=== PATIENT | male | born 1960 | race Caucasian/White ===

== ENCOUNTER 2018-05-11 14:13 | Emergency (ER) | payer OTHER, SELFPAY ==
[2018-05-11 14:19] VITALS: BP 114/84; PULSE 100; RESP 18; TEMP 37.1; O2SAT 95; BMI 41.0
--- NOTE | 2018-05-11 14:52 | ED.VISSUMM ---
- ER Visit Summary Date of Service: 05/11/18 Chief Complaint: Patient presents with chief complaint of headache, fever and sweats. History of Present Illness: The patient is a 57 M presents to the ER because of headache, fever and sweats. Patient's T-max was 100.0?F. He does complain of sweats and chills. Onset of illness [place]. He reports photophobia. He denies neck stiffness or rigidity. He does report chronic back pain. He complains of mild congestion. HEENT is otherwise unremarkable. He denies cough, shortness of breath difficulty breathing. Denies chest pain or palpitations. He denies nausea, vomiting or diarrhea. He denies abdominal pain. Denies any urologic symptoms. He denies any skin lesions. He complains of chronic paresthesia and chronic back pain. Review of old records indicates patient has a past medical history of type 2 diabetes, hypertension, depression and anxiety. He had an MRI which osteomyelitis of T8, T9 and T10 vertebrae. Physical Examination: Vital signs are noted. They are within normal limits. He is not febrile. He is diaphoretic. BMI is 41.1. Head is atraumatic normocephalic. Pupils are equal round reactive. Extraocular muscles are intact. TMs are pearly white with landmarks noted. Nares patent with no drainage. Posterior pharynx without erythema or exudate. Uvula is midline. There is no dysphonia or dysphasia. Trachea is midline. There is no stridor with auscultation of the neck. Mucosa is dry. Funduscopic exam reveals normal cup-to-disc ratio and no papilledema difficult to see vessels and fundi. He does not have photophobia. Neck is supple. Heart is regular without murmur, gallop or rub. S1 and S2 are normal. Lungs are clear to auscultation with good movement of air bilaterally. Abdomen soft nontender. He has no point percussion tenderness of his dorsal or lumbar vertebral bodies. Well-healed scar is noted secondary to removal of benign tumor. He is alert oriented ?3. Motor is 5/5. Sensation is abnormal lower extremity which is old. Patella and ankle reflex are absent on the right which is old. There is no clonus or Babinski sign. Cranial 2 through 12 are intact. Test Results: CBC is unremarkable. There is no elevated white count shift or bandemia. Electronic panel reveals slight decrease in sodium and chloride of 130 397 respectively. Blood sugar slightly elevated 127. Emergency Department Course and Treatment: Patient will be informed that there is no documentation that he had meningitis or osteomyelitis of his spine. MRI revealed discitis. Treatment Plan: Appropriate home-going instructions. Blood cultures were obtained. If positive patient was informed he will be contacted. Otherwise, follow-up with his primary care physician, Dr. Baumann Disposition: Discharged home Impression: 1. Fever of unknown source 2. Headache 3. Type 2 diabetes with hyperglycemia 3. History of hypertension This note was generated with [employer] dictation software. It may contain incorrect words, spelling, and punctuation that were not noted in review of the chart prior to signing ED Disposition - Plan for ED Patient: Disposition: Home or Assisted Living Chief Complaint: Dizziness Instructions: ED Fever Unconf Cause Referrals: Xu Baumann DO [Primary Care Provider] - 1-2 Days if not improving
[2018-05-11 15:03] LABS: Absolute Lymphocyte Count 1.09 X10^3/ul (0.83-4.51); Absolute Neutrophil Count 4.5 X10^3/uL (2.0-7.7); Basophil# 0.04 X10^3/uL; Basophil% 0.6 % (0-1); Eosinophil# 0.05 X10^3/uL; Eosinophils% 0.7 % (0-5); Hematocrit 44.8 % (40-54); Hemoglobin 15.2 g/dl (13.0-16.5); Lymphocyte # 1.09 X10^3/ul (4.0); Lymphocyte % 15.8 % (19-41); Mean Corp Hgb Conc 33.9 g/gl (32-36); Mean Corpuscular Hgb 29.2 pg (27.0-32.0); Mean Platelet Vol. 9.8 fl (6.2-12.0); Monocyte# 1.18 X10^3/uL; Monocyte% 17.1 % (0-10); Neutrophil # 4.54 X10^3/uL (2.7-7.7); Neutrophil % 65.5 % (47-70); Platelet Count 171 K/mm3 (150-450); RBC Distribution Width CV 13.4 % (11.6-14.6); RBC Distribution Width SD 42.4 fl (35.1-43.9); Red Blood Count 5.21 M/mm3 (4.6-6.2); White Blood Count 6.9 K/mm3 (4.4-11.0)
[2018-05-11 15:04] LABS: Differential Indicated SCAN CRITERIA MET; POSITIVE COUNT NO; POSITIVE DIFFERENTIAL NO; POSITIVE MORPHOLOGY YES
[2018-05-11 15:15] LABS: Anion Gap 8 (5-15); BUN 23 mg/dL (7-18); BUN/Creat Ratio 21.7 RATIO (10-20); Calcium,Total 9.2 mg/dL (8.5-10.1); Chloride 97 mmol/L (98-107); Creatinine, Serum 1.06 mg/dL (0.70-1.30); EST Glomerular Filtration Rate 76 mL/min (>60); Est Glom Filt Rate - Afr Amer 92 mL/min (>60); Estimated Creatinine Clearance 74.39 ml/min; Glucose 127 mg/dL (74-106); Potassium 3.5 mmol/L (3.5-5.1); Sodium Level 133 mmol/L (136-145)
[2018-05-11 15:27] VITALS: BP 135/77; PULSE 71; RESP 15; O2SAT 98
[2018-05-11 16:02] LABS: Differential Comment SCANNED
== END 2018-05-11 15:30 | disposition home or self-care (01) ==
PROVIDERS: Emergency Provider Emergency Medicine; Family Provider Student in an Organized Health Care Education/Training Program; PCP Student in an Organized Health Care Education/Training Program
DX: R50.9 Fever, unspecified (principal); R51 Headache; E11.65 Type 2 diabetes mellitus with hyperglycemia; I10 Essential (primary) hypertension; F32.9 Major depressive disorder, single episode, unspecified; F41.9 Anxiety disorder, unspecified; M46.24 Osteomyelitis of vertebra, thoracic region; E66.9 Obesity, unspecified; Z68.41 Body mass index [BMI] 40.0-44.9, adult; Z79.84 Long term (current) use of oral hypoglycemic drugs; Z79.899 Other long term (current) drug therapy
CPT/HCPCS: 80048; 85025; 87040; 99284; A4216

== ENCOUNTER 2019-04-20 11:12 | Emergency (ER) | payer MEDICARE, OTHER, SELFPAY ==
[2019-04-20 11:13] VITALS: BP 152/91; PULSE 73; RESP 20; TEMP 35.8; O2SAT 96; BMI 32.0
--- NOTE | 2019-04-20 12:24 | CT_ITS ---
STUDY: CT BRAIN WITHOUT CONTRAST REASON FOR EXAM: Male, 58 years old. 3 week history of dizziness. RADIATION DOSAGE (If Supplied By Facility): CTDIvol = ( 60.81 ) mGy, DLP = ( 1203.92 ) mGycm TECHNIQUE: Transaxial CT imaging of the brain was performed without administration of intravenous contrast material. Individualized dose optimization techniques were used for this CT. COMPARISON: Comparison is made with prior study dated June 07, 2017. FINDINGS: Normal soft tissue structures. Normal calvarium. Normal size ventricles and extra-axial spaces for the patient's age. Normal white matter tracts of the cerebral hemispheres. Normal basal ganglia and thalami. Normal brainstem. Normal cerebellum. There is no intracranial hemorrhage. There are no findings of an acute ischemic infarction. Normal visualized paranasal sinuses. CT/Brain/Head without Contrast IMPRESSION: Normal unenhanced CT scan of the brain. Electronically Signed: Ned Neil, at 13:34 EDT , Service support ,
--- NOTE | 2019-04-20 12:24 | EKG12_ITS ---
Test Reason : Blood Pressure : / mmHG Vent. Rate : 081 BPM Atrial Rate : 081 BPM P-R Int : 178 ms QRS Dur : 102 ms QT Int : 396 ms P-R-T Axes : 062 -31 027 degrees QTc Int : 460 ms Normal sinus rhythm Left axis deviation Low voltage QRS Inferior infarct , age undetermined Abnormal ECG Confirmed by RIK GAN, ALBA ([id number]), multimedia editor JUSTINE WATKINS ([id number]) on 04/24/2019 1:13:41 PM Referred By: CHANDANA Confirmed By:ALBA JOLLY MD
--- NOTE | 2019-04-20 12:26 | ED.VISSUMM ---
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 Prior meningitis and prior osteomyelitis of his spine after surgery. 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 Is been dizzy with room spinning for the last 3 weeks. Since it is worse than his normal vertigo and is been taking Antivert without much relief. Said somewhat different than his vertigo is normally that resolves. He denies any headache or head injury. He is on no blood thinners. He denies any fever. Physical Examination: Middle-aged male no acute distress. Vital signs are stable afebrile. He walks in the room without any difficulty as well as speaking with his at bedside. HEENT exam unremarkable. Pupils round reactive light. Normal speech. No facial droop. Neck nontender. Old tracheostomy scar. Well-healed. Lungs clear to auscultation bilaterally. Heart regular rate and rhythm no murmur. Rate about 70. Chest wall nontender. Abdomen soft and nontender. Normal bowel sounds no peritoneal signs. Patient moving all 4 extremities. Neurovascularly. Calves are nontender without edema. He has 5-5 gambreler strength bilaterally and 5 out of 5 both the plantar flexion. Neurologically is awake alert with no focal motor deficit. NIH score is 0. Test Results: Normal white count of 9. Hemoglobin 15. Lites unremarkable glucose 139 normal gap normal creatinine. EKG sinus rhythm with low voltage otherwise unremarkable. CT of the brain is read by the radiologist and reviewed by me shows no acute abnormality. Emergency Department Course and Treatment: White female with prior vertigo with dizziness. Treated with p.o. Valium. Treatment Plan: Repeat exam at 1530 p.m. patient is doing well. Initially his dizziness was much better after taking the Valium. He saline went over the radiology department and was moving his head it seemed to return. Repeat exam his neurologic exam is still normal and unchanged. He will be discharged home with prescription also for Valium and follow up with his primary care physician. Disposition: Discharge Impression: Acute dizziness History of vertigo This note was generated with [employer] dictation software. It may contain incorrect words, spelling, and punctuation that were not noted in review of the chart prior to signing ED Disposition - Plan for ED Patient: Referrals: Xu Baumann DO [Primary Care Provider] -
[2019-04-20 12:48] LABS: Anion Gap 4 (5-15); BUN 19 mg/dL (7-18); BUN/Creat Ratio 20.2 RATIO (10-20); Calcium,Total 9.4 mg/dL (8.5-10.1); Chloride 102 mmol/L (98-107); Creatinine, Serum 0.94 mg/dL (0.70-1.30); EST Glomerular Filtration Rate 87 mL/min (>60); Est Glom Filt Rate - Afr Amer 106 mL/min (>60); Estimated Creatinine Clearance 82.87 ml/min; Glucose 139 mg/dL (74-106); Sodium Level 137 mmol/L (136-145)
[2019-04-20] MEDS: diazePAM 5 MG Tablet 10 MG PO (12:50)
[2019-04-20 12:58] LABS: Absolute Lymphocyte Count 1.45 X10^3/uL (0.83-4.51); Absolute Neutrophil Count 6.1 X10^3/uL (2.0-7.7); Basophil# 0.09 X10^3/uL; Eosinophil# 0.46 X10^3/uL; Eosinophils% 5.1 % (0-5); Hematocrit 45.2 % (40-54); Lymphocyte # 1.45 X10^3/ul (4.0); Lymphocyte % 16.2 % (19-41); Mean Corp Hgb Conc 33.2 g/dL (32-36); Mean Corpuscular Hgb 28.8 pg (27.0-32.0); Mean Corpuscular Volume 86.9 fL (80-94); Mean Platelet Vol. 10.3 fl (6.2-12.0); Monocyte# 0.78 X10^3/uL; Monocyte% 8.7 % (0-10); NRBC Flagged by Analyzer 0 % (0-5); Neutrophil # 6.09 X10^3/uL (2.7-7.7); Neutrophil % 67.9 % (47-70); Platelet Count 254 K/mm3 (150-450); RBC Distribution Width CV 12.7 % (11.6-14.6); RBC Distribution Width SD 39.9 fl (35.1-43.9)
[2019-04-20] MEDS: 0.9% Normal Saline 1,000 ML 999 ML IV (13:03)
[2019-04-20 14:32] VITALS: BP 147/80; PULSE 71; RESP 16
--- NOTE | 2019-04-20 15:33 | ED.DEP ---
ED Disposition - Plan for ED Patient: Disposition: Home or Assisted Living Instructions: DIZZINESS, Unk Cause Prescriptions: Diazepam [Valium] 5 mg PO 4X/DAY #20 tab Prescription Printed Referrals: Xu Baumann DO [Primary Care Provider] - 3-5 Days if not improving Additional Instructions: Valium as needed for dizziness. Follow-up with your doctor if not improving.
[2019-04-20 15:41] VITALS: BP 138/94; PULSE 79; RESP 16
== END 2019-04-20 15:43 | disposition home or self-care (01) ==
PROVIDERS: Emergency Provider Emergency Medicine; Family Provider Student in an Organized Health Care Education/Training Program; PCP Student in an Organized Health Care Education/Training Program
DX: R42 Dizziness and giddiness (principal); I10 Essential (primary) hypertension; E11.9 Type 2 diabetes mellitus without complications; Z79.84 Long term (current) use of oral hypoglycemic drugs; Z79.899 Other long term (current) drug therapy
CPT/HCPCS: 70450; 80048; 85025; 93005; 96360; 99285; J7030; A4216

== ENCOUNTER 2021-10-17 13:58 | Outpatient (CLI) | payer MEDICARE, OTHER, SELFPAY ==
--- NOTE | 2021-10-17 15:49 | NEURO ---
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 The patient reports static numbness in multiple distributions following surgical resection in 2016. He is now being evaluated for a soft tissue mass on the extensor surface of the right elbow. He has been sent to evaluate the right ulnar nerve. Findings: Nerve conduction studies were performed in the right upper extremity. Comparison sensory studies to the contralateral left upper extremity. The right median motor study recording the abductor pollicis brevis showed a markedly reduced amplitude, prolonged distal latency and slowed conduction velocity. The right ulnar motor study recording the abductor digiti minimi showed a reduced amplitude, normal distal latency and normal conduction velocity. No conduction block or significant focal slowing was present across the elbow. The right median sensory response recording digit two showed a reduced amplitude, prolonged latency and markedly slowed conduction velocity. The right ulnar sensory response recording digit five showed no response. The right radial sensory response recording over the extensor snuff box showed a reduced amplitude, normal latency and normal conduction velocity. Right median-ulnar lumbrical / interosseous motor latencies showed prolongation of the median response when compared to the ulnar. The right sural sensory response showed a reduced amplitude and slowed conduction velocity. Needle EMG of the right upper extremity muscles was performed. The cervical paraspinal muscles were not sampled due to the patient's history of prior neck surgery. No denervation was seen in any muscle. In the triceps muscle, motor units were large amplitude, long amplitude and reduced recruitment. The biceps and deltoid muscles revealed normal motor unit morphology, activation and recruitment patterns. Impression: This is a markedly abnormal and complex study. There is electrophysiologic evidence of consistent with: 1.) A severe, non-localizing, right ulnar neuropathy. Further evaluation with ultrasound could be considered for further localization and characterization. 2.) A severe, median neuropathy across the right wrist. There is no active denervation of the thenar muscles to suggest ongoing axonal loss. 3.) A mild, chronic, right C7 radiculopathy. In addition, there is evidence suggestive of a generalized peripheral polyneuropathy. This was not fully evaluated as it was not the indication for the study. Lastly, given these multiple concurrent findings, this study would be insensitive for detecting a superimposed brachial plexopathy. Dashawn Campos D.O. Multi Select Codes Neurology Neurology Interp Codes: 14235-23 Musc test done w/n test comp (interp) and 75146-03 Nrv cndj test 9-10 studies (interp)
== END 2021-10-17 23:59 | disposition short-term general hospital (02) ==
LOC: PSN 14:01
PROVIDERS: PCP Student in an Organized Health Care Education/Training Program; Referring Provider Specialist; Visit Provider Specialist
DX: R20.2 Paresthesia of skin (principal)
CPT/HCPCS: 95886; 95911

== ENCOUNTER 2021-12-19 13:52 | Outpatient (CLI) | payer MEDICARE, OTHER, SELFPAY ==
--- NOTE | 2021-12-19 13:56 | ECHOCS_ITS ---
Reason For Study: Pre Op Exam Procedure This was a 2D Doppler, Color Flow transthoracic echocardiogram. Technically difficult study due to patients body habitus. Contrast injection performed. Exam performed in department. Left Ventricle Normal LV size. Left ventricular systolic function is normal. The estimated ejection fraction is 65 %. Stage 1 diastolic dysfunction. No regional wall motion abnormalities noted. Right Ventricle Normal RV size. Normal systolic function. Atria Normal left atrium. Normal right atrium. Mitral Valve Normal mitral valve. Tricuspid Valve The tricuspid valve is not well visualized. Aortic Valve The aortic valve is not well visualized. Pulmonic Valve The pulmonic valve is not well visualized. Great Vessels Normal aortic root. Pericardium/Pleural No pericardial effusion. Medication 22 gauge I.V. with prn adaptor inserted into right arm. Diluted definity 5ml given slow IV push to enhance endocardial definition. MMode/2D Measurements & Calculations Ao root diam: 3.3 cm LAV(MOD-bp): 45.9 ml LA A4 area: 18.6 cm2 LAV(MOD-bp) Indexed: 19.5 ml/m2 LAV(MOD-sp2): 39.6 ml LAV(MOD-sp4): 49.7 ml Time Measurements MV dec time: 0.23 sec Doppler Measurements & Calculations MV E max robert: 63.3 cm/sec Lat Peak E' Robert: 6.3 cm/sec Med Peak E' Robert: 6.8 cm/sec MV A max robert: 109.8 cm/sec E/E' lat: 10.0 E/E' med: 9.3 MV E/A: 0.58 MV V2 max: 136.8 cm/sec MV P1/2t max robert: 84.7 cm/sec Ao V2 max: 111.3 cm/sec MV max P.5 mmHg MV P1/2t: 64.5 msec Ao max P.0 mmHg MV V2 mean: 83.0 cm/sec MV dec slope: 385.0 cm/sec2 MV mean P.1 mmHg MV V2 VTI: 19.8 cm MVA(P1/2t): 3.4 cm2 LV V1 max: 102.5 cm/sec PA V2 max: 96.3 cm/sec LV V1 max P.2 mmHg ECHO/Echo Complete W/ Contrast Interpretation Summary Normal LV size. Left ventricular systolic function is normal. The estimated ejection fraction is 65 %. Stage 1 diastolic dysfunction. Contrast injection was performed. Ordering Physician: Venkat Soler Referring Physician: Xu Baumann Performed By: Jarod Harris RCS
== END 2021-12-19 23:59 | disposition home or self-care (01) ==
LOC: CVS 13:55
PROVIDERS: PCP Student in an Organized Health Care Education/Training Program; Referring Provider Internal Medicine Cardiovascular Disease; Visit Provider Internal Medicine Cardiovascular Disease
DX: Z01.818 Encounter for other preprocedural examination (principal); R06.00 Dyspnea, unspecified; R06.02 Shortness of breath
CPT/HCPCS: 93306; Q9957; A4216; C8929

== ENCOUNTER 2022-01-22 05:54 | Day surgery (SDC) | payer MEDICARE, OTHER, SELFPAY ==
[2022-01-22] VITALS (8 sets, daily range): BP systolic 132–156; BP diastolic 84–97; PULSE 86–106; RESP 16–18; TEMP 36.3–36.9; O2SAT 91–94; BMI 42.6
[2022-01-22] MEDS: Lactated Ringers 1,000 ML 15 ML IV (06:41)
[2022-01-22 06:50] LABS: Bedside Glucose 154 mg/dL (74-106)
--- NOTE | 2022-01-22 07:30 | BUR_PTH ---
PATIENT: AVRIL STAFFORD [place] [facility] [place][id number] AGE/SX: 61/M ROOM: RE01/22/[address]: Dr. Juan José Cohen DO : 1960 BED: DIS: 01/22/2022 SPEC #: [id number] RECD: 01/22/22 10:49 STATUS: DEON SHELL #: [id number] DEVIN: 01/22/22 07:[address]: Juan José Cohen DEPT: SURGICAL PATHOLOGY RECD BY: Tanvi Mena ENTERED: 01/22/22 11:48 SP TYPE: BURSA OTHR DR: Dr. Xu Baumann DO Tissues: Bursa, NOS Procedures: Surgery Specimen Level III HEADER OPERATION: Carpal Tunnel Release, Elbow and Wrist Ulnar Nerve Release PRE-OP DIAGNOSIS: Right Olecranon Bursitis, Right Carpal Tunnel Syndrome, Lesion of Ulnar Nerve, Right Upper Limb. TISSUE SUBMITTED: Right Olecranon Bursa MICROSCOPIC DIAGNOSIS Right olecranon bursa, excision: Mild chronic inflammation. Focal fibrinoid degeneration and associated reactive change. AM:ellyn 01/23/2022 MICROSCOPIC DESCRIPTION Slides are reviewed. GROSS DESCRIPTION Received in fixative is one container labeled with the patient's name and designated right olecranon bursa. The specimen consists of a piece of sun, indurated tissue measuring 8 x 5 x 1 cm. No mass lesion is identified. Jewel Hole Rough Opener sections are submitted in two cassettes. / SJ:ellyn 01/22/2022 TC:3 CPT: 12633
[2022-01-22] MEDS: Lidocaine 1% (20 ml mdv) 20 ML Vial (09:27)
[2022-01-22] MEDS: Lidocaine 1% /Epi 1:100 (20ml) 20 ML Vial (09:29)
--- NOTE | 2022-01-22 09:34 | OP.PCM_ITS ---
Report of Operation Date of Procedure: 01/22/22 Description of Surgical Findings:: Preoperative diagnosis: 1. Right carpal tunnel syndrome 2. Right ulnar tunnel syndrome at the wrist 3. Right cubital tunnel syndrome 4. Chronic right olecranon bursitis Postoperative diagnosis: 1. Right carpal tunnel syndrome 2. Right ulnar tunnel syndrome at the wrist 3. Right cubital tunnel syndrome 4. Chronic right olecranon bursitis Procedure: 1. Right open carpal tunnel release 2. Right ulnar tunnel decompression at the wrist 3. Right cubital tunnel decompression 4. Right olecranon bursectomy Surgeon: Juna José Cohen DO Music Cataloguer: Joyce Darling PA-C Anesthesia: General LMA Anesthesiologist: Dr. Aviles Complications: None Drains: None Estimated blood loss: 100 cc Urinary output: None measured IV fluids: 700 cc crystalloid Specimens: Right olecranon bursa Surgical implants: None Surgical indications: This is a 61-year-old male seen in the outpatient setting diagnosed with median and ulnar nerve compression in the right upper extremity. Ulnar nerve compression was seen both across the elbow and wrist on EMG. Patient also had chronic right olecranon bursitis that has failed multiple aspirations, RICE therapy. The patient failed nonoperative management in the form of anti-inflammatory medications, activity modification. Operative intervention in form of right carpal, ulnar, and cubital tunnel releases and olecranon bursectomy were offered to the right upper extremity. There was no evidence of ulnar nerve instability on examination the office. We discussed potential anterior nerve transposition. The risks, benefits, alternatives to procedure were reviewed with patient at length in the outpatient setting and he agreed to proceed. Risks included but were not limited to bleeding, infection, loss of life or limb, risk of anesthesia, persistent paresthesias, neurovascular injury, persistent pain, need for additional surgery, stiffness, loss of hand function. Patient expressed understanding wish to proceed with surgery. Informed consent obtained in the office. Description of procedure: Patient was seen in preoperative holding area. Patient was identified by name, medical record number, date of . The operative extremity was marked with a surgical marker. We confirmed informed consent with the patient and all questions were answered to the patient's satisfaction. At time of his procedure, patient was brought to the operative suite and positioned supine a standard operating table. All bony prominences were well- padded. General anesthesia was induced and endotracheal tube placed. The operative upper extremity was then prepped for surgery by first applying a well- padded pneumatic tourniquet to the right upper arm. The hand table attached to the right side of the table. We spun the bed 90 degrees. We then prepped and draped the right upper extremity in normal, sterile orthopedic fashion. 2 g Ancef was administered prior to incision by anesthesia staff. We performed a timeout at this point confirming side, site, and operation to be performed. No concerns voiced and elected to proceed. I first exsanguinated the right upper extremity with Esmarch bandage. Tourniquet was inflated to 250 mmHg remained up for 46 minutes. Esmarch was removed. I then planned a curvilinear incision just radial to the hook of the hamate extending past the wrist crease with a Masood extension of approximately 1 cm. Skin was sharply incised with a 15 blade scalpel. I bluntly dissected through the scope to explain where significant fat was noted. I identified the ulnar nerve just deep to the antebrachial fascia. Antebrachial fascia was released. I then released overlying fascial bands of the ulnar nerve through its course through Guyon's canal. I released the Pisa triquetral ligament and leading tendinous edges of the hypothenar musculature to decompress the deep motor branch of the ulnar nerve at the wrist. Complete release of the nerve was ensured with a freer elevator passed through the Guyon's canal. I then turned my attention to the carpal tunnel. Palmar fascia radial to the hook of the hamate was released in line with the incision. The transverse carpal ligament was then identified and transected in similar fashion. Flexor tendons were identified in the carpal tunnel. There was significant hypertrophic tenosynovium noted around the flexor tendons which was excised. No aberrancies of the median nerve were identified. Complete release was confirmed distally upon the identification of perivascular fat. Release proximally was continued into the antebrachial fascia of approximately 1 cm. I then turned my attention to the elbow. I planned a standard curvilinear incision of the cubital tunnel cheating slightly posteriorly to access the olecranon bursa. Incision was approximately 8 cm in length. Skin and subcuta neous tissue were incised sharply with a 15 blade scalpel. I bluntly dissected in the subcutaneous plane down to the level of the olecranon bursa. The bursa was freed from fascial adhesions. I drained the bursa, serosanguineous fluid was encountered. I then used an Allis clamp to elevate the bursa carefully from its fascial adhesions. Bursa was then excised after I was able to track it down to the periosteum of the ulna and distal triceps. The triceps was examined and was unremarkable. Bursa was then excised and sent to pathology. I then turned my attention to the cubital tunnel. The interval between the medial epicondyle and olecranon was identified. 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 I debrided the muscle with a bipolar cautery. Underlying Martinez's ligament was identified and released. The ulnar nerve was then identified and appeared to be compressed at this level with significant hourglass appearance and discoloration noted of the nerve. I continued my release of the ulnar nerve distally, releasing the superficial and deep fascia of the 2 heads of the flexor carpi ulnaris. Release was carried distally until the first motor branch to the FCU was identified. I then continue to release proximally. The arcade of [place] was identified and released. The medial intermuscular septum was also identified and released from its insertion, excising a slip of tissue 1 x 5 cm in length. I was able to digitally palpated the posterior compartment, no further fascial bands were identified as compression sites for the nerve. I then brought the elbow through range of motion and the nerve appeared stable. I then deflated the tourniquet. I injected the surrounding tissues with 1% lidocaine with epinephrine 1: 100,000, approximately 20 cc. There was significant bleeding noted from the bursectomy. Bovie cautery was used to obtain hemostasis. I closed the wrist incision with interrupted horizontal mattress 3-0 nylon suture. Elbow incision was closed with deeper 3-0 Vicryl suture to eliminate space from the bursectomy. Dermis was reapproximated with buried 3-0 Vicryl suture. Skin was finally reapproximated with a running, horizontal mattress 3-0 nylon suture. Sterile compression dressing was applied. Patient tolerated procedure well without complication. Patient was safely extubated in the operative suite. He was transferred back to PACU in stable condition. Need for skilled customer support assistant: Joyce Darling PA-C was critical to the outcome of the case. During the course of the procedure the physician customer support assistant played a vital role. Her intimate knowledge of my steps in the procedure aided in safe and expedient completion of the procedure. The PA played a vital role in positioning particularly in obtaining the appropriate positioning. The PA was also vital in the retraction of soft tissues during the exposure and protecting vital structures. She also played a vital role in closure with my direct supervision. Post Operative Plan: Weightbearing: Nonweightbearing operative extremity Antibiotics: Ancef 2 g x 1 dose preoperatively DVT Prophylaxis: Restart home aspirin tomorrow Dejesus: None Dressing: Maintain x3 days, then okay to remove and shower. X-Rays: None pain Medication: Oxycodone Rx upon discharge Follow-up: 2 weeks post-operatively with me in the office
[2022-01-22 10:21] LABS: Bedside Glucose 161 mg/dL (74-106)
[2022-01-22] MEDS: dexAMETHasone 10 MG/ML Vial IV (10:50)
--- NOTE | 2022-01-22 11:30 | PCM.DC ---
Discharge Instructions Follow Up Care Test Results: Test results from this visit will be discussed in further detail at your follow-up appointment, if applicable. Discharge Plan Admission Attending Provider: Juan José Cohen Primary Care Provider: Xu Baumann Instructions Additional Instructions / Restrictions: Follow preprinted instructions from your surgeons office. Discharge Orders/Prescriptions Prescriptions: No Action Trulicity 0.75 mg/0.5 mL pen injector 0.75 mg subcut TU RF: 0 metformin 1,000 mg tablet 1,000 mg PO BID RF: 0 Lantus Solostar U-100 Insulin 100 unit/mL (3 mL) insulin pen 10 unit subcut QPM RF: 0 tizanidine 4 mg capsule 4 mg PO Q8H PRN (Reason: MUSCLE SPASMS) RF: 0 meclizine 25 mg tablet 25 mg PO Q6H PRN (Reason: Vertigo) RF: 0 escitalopram oxalate 10 mg tablet 10 mg PO DAILY RF: 0 vitamin B complex Tablet 1 tab PO DAILY RF: 0 hydrochlorothiazide 25 mg tablet 25 mg PO DAILY RF: 0 multivitamin Tablet 1 tab PO DAILY RF: 0 ascorbic acid (vitamin C) 1,000 mg tablet 1 g PO DAILY RF: 0 metoprolol tartrate 50 MG tablet 50 mg PO BID Qty: 60 RF: 0 gabapentin 300 MG capsule 900 mg PO TIDCM Qty: 180 RF: 0 Referrals / Follow Up: Xu Baumann DO [Primary Care Provider] - Juan José Cohen DO [STAFF PHYSICIAN] - Disposition Disposition (needs filled in before D/C Order can be placed): Home, Self Care
== END 2022-01-22 12:04 | disposition home or self-care (01) ==
LOC: SDC 05:54 → AC 05:56
PROVIDERS: PCP Student in an Organized Health Care Education/Training Program; Referring Provider Student in an Organized Health Care Education/Training Program; Visit Provider Student in an Organized Health Care Education/Training Program
PROC: (CPT 64721; principal; 2022-01-22 07:15)
DX: G56.01 Carpal tunnel syndrome, right upper limb (principal); E11.40 Type 2 diabetes mellitus with diabetic neuropathy, unspecified; Z68.41 Body mass index [BMI] 40.0-44.9, adult; Z79.4 Long term (current) use of insulin; G56.21 Lesion of ulnar nerve, right upper limb; M70.21 Olecranon bursitis, right elbow; I10 Essential (primary) hypertension; I25.2 Old myocardial infarction; E78.5 Hyperlipidemia, unspecified; G47.33 Obstructive sleep apnea (adult) (pediatric); M19.90 Unspecified osteoarthritis, unspecified site; E66.8 Other obesity; Z71.3 Dietary counseling and surveillance; Z20.822 Contact with and (suspected) exposure to COVID-19; Z79.84 Long term (current) use of oral hypoglycemic drugs; Z79.899 Other long term (current) drug therapy; Z87.891 Personal history of nicotine dependence
CPT/HCPCS: 64721; 64718; 24105; 82962; 87811; 88304; C9803; J7120; J3490

== ENCOUNTER 2022-03-17 13:19 | Observation (INO) | payer MEDICARE, OTHER, SELFPAY ==
[2022-03-17] VITALS (18 sets, daily range): BP systolic 139–180; BP diastolic 91–112; PULSE 76–112; RESP 16–93; TEMP 36.1–36.9; O2SAT 92–97; BMI 42.0
--- NOTE | 2022-03-17 14:04 | EDS_ITS ---
HPI History of Present Illness Chief Complaint: Allergic Reaction Informant: patient and family Narrative Narrative: 61-year-old male presenting to the emergency department angioedema. Symptoms began at approximately 4 hours ago and involving his lower lip. He took 2 [id number] Benadryl went to urgent care and they sent him to emergency. The patient in 2012 had significant angioedema which resulted in intubation and prolonged ICU care and eventual tracheostomy. At that time it was felt that his angioedema was due to lisinopril or Wellbutrin. Patient states his tongue does not feel swollen and he is not having any difficulty swallowing and family states his voice sounds normal. In 2013, he had normal C1 esterase and complement activity. [facility] Medical History Ambulates with cane Arthritis Back pain BPH (benign prostatic hyperplasia) BPPV (benign paroxysmal positional vertigo) Cardiology follow-up encounter Cervical spine tumor Chronic low back pain CPAP (continuous positive airway pressure) dependence Degenerative disc disease Depression Depression Dietary restriction DVT (deep venous thrombosis) Dysmetabolic syndrome Fatty liver Former smoker History of echocardiogram History of edema History of kidney stones History of meningitis (2010) History of osteomyelitis History of pain when walking History of steroid therapy Hypertension Insulin dependent diabetes mellitus Leg cramps Marijuana use Obstructive sleep apnea MARNIE on CPAP Restless legs Rib injury Right carpal tunnel syndrome Shortness of breath on exertion Situational depression Vertigo Vitamin D deficiency Wears dentures Wears glasses Wears hearing aid Home Medications metoprolol tartrate 50 mg tablet 50 mg PO BID #60 TABLETS 07/24/13 [Rx Last Taken 06/29/16 17:30] gabapentin 300 mg capsule 900 mg PO TIDCM #180 caps 09/07/16 [Rx Last Taken Unknown] ascorbic acid (vitamin C) 1,000 mg tablet 1 g PO DAILY 12/15/21 [History Last Taken Unknown] dulaglutide 0.75 mg/0.5 mL subcutaneous pen injector (Trulicity) 0.75 mg subcut TU 12/15/21 [History Last Taken Unknown] escitalopram oxalate 10 mg tablet 10 mg PO DAILY 12/15/21 [History Last Taken Unknown] hydrochlorothiazide 25 mg tablet 25 mg PO DAILY 12/15/21 [History Last Taken Unknown] insulin glargine 100 unit/mL (3 mL) subcutaneous pen (Lantus Solostar U-100 Insulin) 10 unit subcut QPM 12/15/21 [History Last Taken Unknown] meclizine 25 mg tablet 25 mg PO Q6H PRN Vertigo 12/15/21 [History Last Taken Unknown] metformin 1,000 mg tablet 1,000 mg PO BID 12/15/21 [History Last Taken Unknown] multivitamin 1 tab PO DAILY 12/15/21 [History Last Taken Unknown] tizanidine 4 mg capsule 4 mg PO Q8H PRN MUSCLE SPASMS 12/15/21 [History Last Taken Unknown] vitamin B complex 1 tab PO DAILY 12/15/21 [History Last Taken Unknown] Allergy/AdvReac Type Severity Reaction Status Date / Time CEE Inhibitors Allergy Severe Angioedema, Verified 03/17/22 13:20 Coma: pt intubated lisinopril Allergy Severe Angioedema, Verified 03/17/22 13:20 COMA, pt intubated bupropion HCl Allergy Angioedema Verified 03/17/22 13:20 [From Wellbutrin] Iodinated Contrast Media Allergy Unknown Verified 03/17/22 13:20 [Iodinated Contrast Media - IV Dye] Penicillins Allergy Hives Verified 03/17/22 13:20 shellfish derived Allergy Swelling Verified 03/17/22 13:20 promethazine [From Phenergan] AdvReac Intermediate restless Verified 03/17/22 13:20 legs Family History Father Alcohol abuse Drug abuse COPD (chronic obstructive pulmonary disease) Cirrhosis of liver CAD (coronary artery disease) Mother Breast cancer Brother Colon cancer Surgical History History of bronchoscopy (06/20/13) History of cervical spinal surgery History of colonoscopy (11/17/21) History of esophagogastroduodenoscopy (EGD) (12/09/15) History of inguinal hernia repair History of lithotripsy (09/20/07) History of tooth extraction History of tracheostomy (09/20/12) History of undescended testicle Social History Smoking Status: Former smoker quit date: 09/20/14 pack-years: 30 ROS ROS ED Constitutional Constitutional ED: Denies chills or weight loss Eyes Eyes: Denies change in vision or diplopia ENT ENT ED: Reports other Details: Lip swelling ; Denies ear pain, rhinorrhea or sore throat Cardiovascular Cardiovascular: Denies chest pain, orthopnea, palpitations or racing heartbeat Respiratory/Chest Respiratory/Chest: Denies cough, dyspnea or orthopnea Gastrointestinal Gastrointestinal: Denies abdominal pain, diarrhea, nausea or vomiting Genitourinary Genitourinary ED: Denies dysuria, hematuria or urinary frequency Musculoskeletal Musculoskeletal: Denies arthralgias or myalgias Integumentary Denies abscess or rash Neurologic Neurologic: Denies headache(s) or weakness Psychiatric Psychiatric: Denies anxiety, depression, suicidal ideation or suicidal thoughts Endocrine Endocrinology: Denies polydipsia, polyphagia or polyuria Allergic/Immunologic Allergic/Immunologic ED: Denies mouth swelling, tongue swelling or urticaria EXAM Physical Exam Const Vital Signs: 03/17/22 13:20 Temperature 97 F L Temperature Source Temporal Pulse Rate 84 Respiratory Rate 16 Blood Pressure 159/98 H Blood Pressure Mean 118 Pulse Ox 97 Oxygen Delivery Method Room Air Positive well nourished, well developed and obese General Appearance ED: well developed Nutritional Appearance: obese HEENT Reports normocephalic, head/scalp atraumatic and moist mucous membranes HEENT Narrative: The lower lip is diffusely swollen as is the tissue along the chin. I do not appreciate any tongue swelling uvula swelling or floor the mouth swelling. There is no stridor. Eyes PERRL and EOMs intact bilaterally Neck no lymphadenopathy, supple and no JVD Resp normal respiratory effort and clear to auscultation bilaterally Cardio regular rate, regular rhythm and no murmurs GI normal to inspection, nondistended, normoactive bowel sounds and non-tender Palpation: soft Back/Spine no CVA tenderness and normal ROM Extremity normal to inspection General Extremety ED: Negative for edema General Extremity: Negative for edema Neuro oriented x3 and CN's II-XII intact bilaterally Sensorium / Orientation: alert Motor Exam: strength 5/5 throughout Psych mental status grossly normal Mood & Affect: Negative for depressed or tearful Skin no rashes or lesions noted and no wounds MDM MDM MDM Narrative Medical decision making narrative: Patient received Solu-Medrol Benadryl and Pepcid. Plan is going to be admission to the hospital for observation and further care. Lab Data Attestation: I reviewed the patient's lab results. Labs: Laboratory Results - last 24 hr 03/17/22 14:10 WBC 10.8 RBC 5.27 Hgb 15.4 Hct 44.7 MCV 84.8 MCH 29.2 MCHC 34.5 RDW Std Deviation 40.0 RDW Coeff of Iza 13.1 Plt Count 283 MPV 9.8 Immature Gran % (Auto) 0.800 Neut % (Auto) 69.8 Lymph % (Auto) 18.0 L [place] % (Auto) 7.5 Eos % (Auto) 3.0 Baso % (Auto) 0.9 Absolute Neuts (auto) 7.5 Absolute Lymphs (auto) 1.95 Nucleated RBC % 0 Discharge Plan Dx/Rx/DC Orders Clinical Impression: Angioedema Disposition Disposition: Acute Care Hospital [facility]
[2022-03-17] MEDS: MethylPREDNISolone 125 MG/2 ML Vial IV (14:20)
[2022-03-17] MEDS: DiphenhydrAMINE 50 MG/ML Syringe 25 MG IV ×2 (14:20→18:31)
[2022-03-17] MEDS: Famotidine 200 MG/20 ML MDV 20 MG in 0.9% Normal Saline (Pres. free 8 ML 300 MG IV ×2 (14:20→21:19)
[2022-03-17 14:30] LABS: Absolute Lymphocyte Count 1.95 X10^3/uL (0.83-4.51); Absolute Neutrophil Count 7.5 X10^3/uL (2.0-7.7); Basophil% 0.9 % (0-1); Eosinophil# 0.33 X10^3/uL; Hematocrit 44.7 % (40-54); Hemoglobin 15.4 g/dL (13.0-16.5); Lymphocyte # 1.95 X10^3/ul (0.83-4.51); Mean Corp Hgb Conc 34.5 g/dL (32-36); Mean Corpuscular Hgb 29.2 pg (27.0-32.0); Mean Corpuscular Volume 84.8 fL (80-94); Mean Platelet Vol. 9.8 fl (6.2-12.0); Monocyte# 0.81 X10^3/uL; Monocyte% 7.5 % (0-10); NRBC Flagged by Analyzer 0 % (0-5); Neutrophil # 7.54 X10^3/uL (2.7-7.7); Neutrophil % 69.8 % (47-70); Platelet Count 283 K/mm3 (150-450); RBC Distribution Width CV 13.1 % (11.6-14.6); Red Blood Count 5.27 M/mm3 (4.6-6.2); White Blood Count 10.8 K/mm3 (4.4-11.0)
[2022-03-17 14:45] LABS: ALB/GLOB Ratio 0.9 RATIO (0.9-2.4); AST(SGOT) 60 U/L (15-37); Alanine Aminotransfer ALT/SGPT 89 U/L (16-61); Albumin, Serum 3.8 g/dL (3.2-5.0); Alkaline Phosphatase 103 U/L (45-117); Anion Gap 7 (5-15); BUN 19 mg/dL (7-18); BUN/Creat Ratio 20.4 RATIO (10-20); Calcium,Total 9.9 mg/dL (8.5-10.1); Chloride 98 mmol/L (98-107); Creatinine, Serum 0.93 mg/dL (0.70-1.30); EST Glomerular Filtration Rate 87 mL/min (>60); Est Glom Filt Rate - Afr Amer 106 mL/min (>60); Estimated Creatinine Clearance 83.41 ml/min; Globulin 4.4 g/dL (2.2-4.2); Glucose 232 mg/dL (74-106); Potassium 3.9 mmol/L (3.5-5.1); Protein, Total 8.2 g/dL (6.4-8.2); Sodium Level 136 mmol/L (136-145)
--- NOTE | 2022-03-17 14:45 | NURSING ---
ICU JOSE ANGIOEDEMA
--- NOTE | 2022-03-17 15:00 | ED.RN ---
Report called to Wilfredo in ICU
--- NOTE | 2022-03-17 16:45 | PCM.HP.STD ---
[facility] - General General Date of Admission: 03/17/22 Date of Service: 03/17/22 Chief Complaint: Lower lip swelling HPI Narrative AVRIL STAFFORD, is a 61 M who presented to the emergency department at [facility] on 03/17/2022 with lower lip swelling. Patient states the swelling began approximately 4 hours prior to presentation at 10:00 this morning and involves only his lower lip. He indicates he took 2 [id number] Benadryl and went to the urgent care at which point they sent him to the emergency department. In 2012 the patient had an extensive admission for angioedema which resulted in emergent intubation and a prolonged ICU course and eventual tracheostomy. At that time it was felt his angioedema was related to lisinopril and Wellbutrin and those were discontinued at that time. Patient indicates he has not started any new medications and not had any specific dietary changes. He does not remember ever following up with allergy/immunology after discharge at that time. He had an extensive work-up at that time of admission and had a normal C1 esterase as well as complement activity. He feels that his swelling is currently improved after treatment in the emergency department and was frustrated he was not able to go home. His vital signs at the time of admission showed a temperature of 97, heart rate of 84, blood pressure of 159/98, respiratory rate of 16, and oxygen saturations were 97% on room air. His CBC was unremarkable. His CMP showed normal electrolytes and renal function with a glucose of 232 and an elevated ALT and AST slightly with an ALT of 89 and an AST of 60. These have not been previously elevated but the last data we have is from 2017. In the emergency department he was treated with Solu-Medrol 125 mg x 1 dose, famotidine, and Benadryl. We elected to admit him to the intensive care unit given his previous history of severe angioedema and extensive hospitalization. I did discuss the case with paving contractor on-call in case we have any airway issues. [facility] Medical History Ambulates with cane Arthritis Back pain BPH (benign prostatic hyperplasia) BPPV (benign paroxysmal positional vertigo) Cardiology follow-up encounter Cervical spine tumor Chronic low back pain CPAP (continuous positive airway pressure) dependence Degenerative disc disease Depression Depression Diabetes mellitus type II, controlled Dietary restriction DVT (deep venous thrombosis) Dysmetabolic syndrome Essential hypertension Fatty liver Former smoker History of echocardiogram History of edema History of kidney stones History of meningitis (2010) History of osteomyelitis History of pain when walking History of steroid therapy Hypertension Insulin dependent diabetes mellitus Leg cramps Marijuana use Morbid obesity Obstructive sleep apnea MARNIE on CPAP Pre-operative cardiovascular exam, new EKG abnormalities c/w ischemia (11/26/21) Restless legs Rib injury Right carpal tunnel syndrome Shortness of breath on exertion Situational depression Vertigo Vitamin D deficiency Wears dentures Wears glasses Wears hearing aid Home Medications ascorbic acid (vitamin C) 1,000 mg tablet 1,000 mg PO DAILY SUPPLEMENT 12/15/21 [History Last Taken 03/17/22] dulaglutide 0.75 mg/0.5 mL subcutaneous pen injector (Trulicity) 0.75 mg subcut TU DM 12/15/21 [History Last Taken 03/10/22] escitalopram oxalate 10 mg tablet 10 mg PO DAILY DEPRESSION 12/15/21 [History Last Taken 03/17/22] hydrochlorothiazide 25 mg tablet 25 mg PO DAILY FLUID 12/15/21 [History Last Taken 03/16/22] insulin glargine 100 unit/mL (3 mL) subcutaneous pen (Lantus Solostar U-100 Insulin) 6 unit subcut QPM DM 12/15/21 [History Last Taken 03/16/22] meclizine 25 mg tablet 25 mg PO Q6H PRN Vertigo 12/15/21 [History Last Taken 3 Days Ago ~03/14/22] multivitamin 1 tab PO DAILY SUPPLEMENT 12/15/21 [History Last Taken 03/17/22] tizanidine 4 mg capsule 4 mg PO Q8H PRN MUSCLE SPASMS 12/15/21 [History Last Taken 03/16/22] vitamin B complex 1 tab PO DAILY SUPPLEMENT 12/15/21 [History Last Taken 03/17/22] gabapentin 300 mg capsule 900 mg PO TIDCM NERVE PAIN 03/17/22 [History Last Taken 03/17/22] metformin 500 mg tablet,extended release 24 hr 1,000 mg PO DAILY DM 03/17/22 [History Last Taken 03/17/22] metformin 500 mg tablet,extended release 24 hr 500 mg PO DAILY DM 03/17/22 [History Last Taken 03/16/22] metoprolol tartrate 50 mg tablet 50 mg PO BID HEART 03/17/22 [History Last Taken 03/17/22] Allergy/AdvReac Type Severity Reaction Status Date / Time CEE Inhibitors Allergy Severe Angioedema, Verified 03/17/22 13:20 Coma: pt intubated lisinopril Allergy Severe Angioedema, Verified 03/17/22 13:20 COMA, pt intubated bupropion HCl Allergy Angioedema Verified 03/17/22 13:20 [From Wellbutrin] Iodinated Contrast Media Allergy Unknown Verified 03/17/22 13:20 [Iodinated Contrast Media - IV Dye] Penicillins Allergy Hives Verified 03/17/22 13:20 shellfish derived Allergy Swelling Verified 03/17/22 13:20 promethazine [From Phenergan] AdvReac Intermediate restless Verified 03/17/22 13:20 legs Family History Father Alcohol abuse Drug abuse COPD (chronic obstructive pulmonary disease) Cirrhosis of liver CAD (coronary artery disease) Mother Breast cancer Brother Colon cancer Surgical History History of bronchoscopy (06/20/13) History of cervical spinal surgery History of colonoscopy (11/17/21) History of esophagogastroduodenoscopy (EGD) (12/09/15) History of inguinal hernia repair History of lithotripsy (09/20/07) History of tooth extraction History of tracheostomy (09/20/12) History of undescended testicle Social History (Updated 03/17/22 @ 17:[address] Ava Gordillo DO) household members: spouse housing: house Smoking Status: Former smoker quit date: 09/20/14 pack-years: 30 alcohol intake: never substance use type: marijuana Vital Signs Vital Signs Vital Signs: 03/17/22 13:20 03/17/22 14:54 03/17/22 14:00 Temperature 97 F L 97.3 F L Temperature Source Temporal Temporal Pulse Rate 84 83 76 Respiratory Rate 16 16 20 H Blood Pressure 159/98 H 150/107 H 150/107 H Blood Pressure Mean 118 121 121 Pulse Ox 97 94 93 Oxygen Delivery Method Room Air Room Air Room Air 03/17/22 15:41 03/17/22 16:05 Temperature Temperature Source Pulse Rate 83 Respiratory Rate Blood Pressure Blood Pressure Mean Pulse Ox 94 Oxygen Delivery Method Room Air Weight Weight: 129.1 kg Body Mass Index (BMI) 42.0 Physical Exam Const alert, oriented x3, no apparent distress, healthy appearing and well nourished Constitutional Narrative: Morbidly obese upper middle-aged white male sitting up in bed, daughter is at the bedside, patient appears comfortable and nontoxic HEENT normocephalic, head/scalp atraumatic, hearing grossly normal bilaterally and moist oral mucous membranes HEENT Narrative: Significant bottom lip swelling that extends into his chin area, tongue demonstrates no swelling, patient managing oral secretions without difficulty, no speech abnormalities Eyes PERRL, EOMs intact bilaterally and conjunctivae normal Eyes Narrative: No scleral icterus Neck no lymphadenopathy, supple, no JVD and no carotid bruits Neck Narrative: Neck is short and thick, tracheostomy site scar are noted in the anterior neck with a posterior vertical 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 Resp normal respiratory effort, no retractions, no use of accessory muscles and clear to auscultation bilaterally Resp Narrative: Distant secondary to body habitus Auscultation: Negative for crackles, rales, rhonchi or wheezes Cardio regular rate, regular rhythm, S1 normal heart sound, S2 normal heart sound, no murmurs, no rub, no gallops, no clicks and no JVD GI normal to inspection, nondistended, normoactive bowel sounds, soft to palpation, non-tender and non-distended GI Narrative: Protuberant abdomen Extremity no clubbing, cyanosis or edema Extremity Narrative: 2+ pedal pulses Neuro oriented x3, CN's II-XII intact bilaterally, moves all extremities and no focal motor deficits Sensorium / Orientation: awake, alert, oriented to person, oriented to place and oriented to time Speech: speech normal Motor Exam: strength 5/5 throughout Psych affect normal Results Lab / Micro Data Attestation: I reviewed the patient's lab results. Result Diagrams: 03/17/22 14:10 03/17/22 14:10 Labs: Laboratory Results - last 24 hr 03/17/22 14:10: WBC 10.8, RBC 5.27, Hgb 15.4, Hct 44.7, MCV 84.8, MCH 29.2, MCHC 34.5, RDW Std Deviation 40.0, RDW Coeff of Iza 13.1, Plt Count 283, MPV 9.8, Immature Gran % (Auto) 0.800, Neut % (Auto) 69.8, Lymph % (Auto) 18.0 L, [place] % (Auto) 7.5, Eos % (Auto) 3.0, Baso % (Auto) 0.9, Absolute Neuts (auto) 7.5, Absolute Lymphs (auto) 1.95, Nucleated RBC % 0 03/17/22 14:10: Sodium 136, Potassium 3.9, Chloride 98, Carbon Dioxide 31.0, Anion Gap 7, BUN 19 H, Creatinine 0.93, Estim Creat Clear Calc 83.41, Est GFR (MDRD) Af Amer 106, Est GFR (MDRD) Non-Af 87, BUN/Creatinine Ratio 20.4 H, Glucose 232 H, Calcium 9.9, Total Bilirubin 0.40, AST 60 H, ALT 89 H, Alkaline Phosphatase 103, Total Protein 8.2, Albumin 3.8, Globulin 4.4 H, Albumin/Globulin Ratio 0.9 Assessment & Plan Assessment/Plan (1) Elevated liver enzymes: (2) Angioedema: PLAN: Plan Angioedema -Started suddenly today at 10 AM -Had 1 previous episode of angioedema in 2012 that resulted in a tracheostomy and to cardiopulmonary arrest -At that time it was felt that his angioedema was related to Wellbutrin/lisinopril and both these agents were discontinued -No new agents initiated -No atypical oral intake for his diet -Continue IV steroids 60 mg every 6--> was given 125 mg x 1 dose emergency department -Benadryl every 6 hours -Famotidine twice daily -N.p.o. for now with sips and chips -May be able to advance diet later today to clear liquids if patient continues to improve -Extensive work-up done in 2013 with normal C3 and C4 levels as well as C1 esterase levels -Patient did not remember ever following up with allergy/immunology -Recommend outpatient follow-up with allergy immunology at discharge -Reviewed meds of the patient's current medication list he is on 2 medications which could potentially cause angioedema including gabapentin and tizanidine both of which have been discontinued -We will monitor patient in the ICU as he has been a difficult airway previously and has previous tracheostomy which would increase his risk for difficult airway at this time Transaminitis -Suspect patient has fatty liver disease at baseline -We will make referral to GI at discharge as this diagnosis would potentially make him at increased risk for liver cirrhosis in the future -Repeat in a.m. -We will need further work-up as an outpatient DM-2 -Continue Lantus but will increase the dose to 10 units from 6 units given steroid use -Hold metformin -Sliding scale -Accu-Cheks every 6 hours -N.p.o. but will start cardiac carb controlled diet when able Hypertension -Continue metoprolol -Continue hydrochlorothiazide Diabetic neuropathy -We will discontinue gabapentin at this time given its risk potential for angioedema Obstructive sleep apnea -Patient will bring home unit and utilize at at bedtime and with naps -Over replaced Morbid obesity -BMI is 42 -Recommend weight loss -Complicates treatment, prognosis, outcomes Depression -Continue Lexapro DVT prophylaxis -Lovenox 40 mg twice daily CODE STATUS -Full code Charges/Coding Visit Charges Inpatient E&M: 24899 Init Hosp L3
[2022-03-17] MEDS: MethylPREDNISolone 125 MG/2 ML Vial 60 MG IV (18:31)
[2022-03-17] MEDS: oxyCODONE 5 MG Tablet PO ×2 (18:31→22:30)
[2022-03-17] MEDS: Insulin Lispro 100 UNIT/ML INSULN.PEN SC ×2 (18:48→21:20)
[2022-03-17] MEDS: 0.9% Saline Lock 10 ML Syringe IV ×2 (18:48→21:20)
[2022-03-17 18:56] LABS: Bedside Glucose 302 mg/dL (74-106)
[2022-03-17] MEDS: Enoxaparin 40 MG/0.4 ML Syringe SC (21:21)
[2022-03-17] MEDS: Insulin Glargine-YFGN 100 UNIT/ML Pen 10 UNIT SC (21:21)
[2022-03-17] MEDS: Metoprolol Tartrate 50 MG Tablet PO (21:22)
[2022-03-17 21:36] LABS: Bedside Glucose 333 mg/dL (74-106)
[2022-03-18] VITALS (14 sets, daily range): BP systolic 135–163; BP diastolic 83–108; PULSE 81–106; RESP 17–22; TEMP 36.6–37; O2SAT 91–95
[2022-03-18] MEDS: MethylPREDNISolone 125 MG/2 ML Vial 60 MG IV ×2 (00:19→05:05)
[2022-03-18] MEDS: DiphenhydrAMINE 50 MG/ML Syringe 25 MG IV ×2 (00:20→05:05)
[2022-03-18] MEDS: oxyCODONE 5 MG Tablet PO (02:21)
[2022-03-18 05:43] LABS: AST(SGOT) 35 U/L (15-37); Alanine Aminotransfer ALT/SGPT 76 U/L (16-61); Albumin, Serum 3.8 g/dL (3.2-5.0); Alkaline Phosphatase 107 U/L (45-117); Anion Gap 10 (5-15); BUN 18 mg/dL (7-18); BUN/Creat Ratio 22.2 RATIO (10-20); Bilirubin, Direct 0.15 mg/dL (0.00-0.30); Calcium,Total 9.9 mg/dL (8.5-10.1); Chloride 95 mmol/L (98-107); Creatinine, Serum 0.81 mg/dL (0.70-1.30); EST Glomerular Filtration Rate 103 mL/min (>60); Est Glom Filt Rate - Afr Amer 124 mL/min (>60); Estimated Creatinine Clearance 95.77 ml/min; Globulin 4.5 g/dL (2.2-4.2); Glucose 382 mg/dL (74-106); Magnesium 2.2 mg/dL (1.6-2.6); Phosphorus 3.2 mg/dL (2.5-4.9); Potassium 4.2 mmol/L (3.5-5.1); Protein, Total 8.3 g/dL (6.4-8.2); Sodium Level 132 mmol/L (136-145)
[2022-03-18] MEDS: Insulin Lispro 100 UNIT/ML INSULN.PEN SC (06:55)
[2022-03-18 07:01] LABS: Bedside Glucose 382 mg/dL (74-106)
[2022-03-18] MEDS: Multivitamins,Therapeutic Tablet 1 TABLET PO (08:41)
[2022-03-18] MEDS: Ascorbic Acid 500 MG Tablet 1000 MG PO (08:41)
[2022-03-18] MEDS: Vitamin B Comp W-C Capsule 1 CAP PO (08:41)
[2022-03-18] MEDS: Escitalopram Oxalate 10 MG Tablet PO (08:42)
[2022-03-18] MEDS: Metoprolol Tartrate 50 MG Tablet PO (08:42)
[2022-03-18] MEDS: hydroCHLOROthiazide 25 MG Tablet PO (08:42)
[2022-03-18] MEDS: Enoxaparin 40 MG/0.4 ML Syringe SC (08:42)
[2022-03-18] MEDS: Famotidine 200 MG/20 ML MDV 20 MG in 0.9% Normal Saline (Pres. free 8 ML 300 MG IV (08:42)
--- NOTE | 2022-03-18 10:18 | DS.PCM_ITS ---
Providers Date of Admission: 03/17/22 Date of Discharge: 03/18/22 Primary Care Physician: Dr. Xu Baumann, Reason For Visit: ANGIOEDEMA Diagnosis Discharge Diagnosis (1) Elevated liver enzymes: Status: Acute Code(s): R74.8 - Abnormal levels of other serum enzymes (2) Angioedema: Status: Acute Code(s): T78.3XXA - Angioneurotic edema, initial encounter Plan Angioedema -Started suddenly today at 10 AM -Had 1 previous episode of angioedema in 2013 that resulted in a tracheostomy and to cardiopulmonary arrest -At that time it was felt that his angioedema was related to Wellbutrin/li sinopril and both these agents were discontinued -No new agents initiated -No atypical oral intake for his diet -Continue IV steroids 60 mg every 6--> was given 125 mg x 1 dose emergency department -Benadryl every 6 hours -Famotidine twice daily -N.p.o. for now with sips and chips -May be able to advance diet later today to clear liquids if patient continues to improve -Extensive work-up done in 2012 with normal C3 and C4 levels as well as C1 esterase levels -Patient did not remember ever following up with allergy/immunology -Recommend outpatient follow-up with allergy immunology at discharge -Reviewed meds of the patient's current medication list he is on 2 medications which could potentially cause angioedema including gabapentin and tizanidine both of which have been discontinued -We will monitor patient in the ICU as he has been a difficult airway previously and has previous tracheostomy which would increase his risk for difficult airway at this time Transaminitis -Suspect patient has fatty liver disease at baseline -We will make referral to GI at discharge as this diagnosis would potentially make him at increased risk for liver cirrhosis in the future -Repeat in a.m. -We will need further work-up as an outpatient DM-2 -Continue Lantus but will increase the dose to 10 units from 6 units given steroid use -Hold metformin -Sliding scale -Accu-Cheks every 6 hours -N.p.o. but will start cardiac carb controlled diet when able Hypertension -Continue metoprolol -Continue hydrochlorothiazide Diabetic neuropathy -We will discontinue gabapentin at this time given its risk potential for angioedema Obstructive sleep apnea -Patient will bring home unit and utilize at at bedtime and with naps -Over replaced Morbid obesity -BMI is 42 -Recommend weight loss -Complicates treatment, prognosis, outcomes Depression -Continue Lexapro DVT prophylaxis -Lovenox 40 mg twice daily CODE STATUS -Full code Medications at Discharge Home Medications ascorbic acid (vitamin C) 1,000 mg tablet 1,000 mg PO DAILY SUPPLEMENT 12/15/21 dulaglutide 0.75 mg/0.5 mL subcutaneous pen injector (Trulicity) 0.75 mg subcut TU DM 12/15/21 escitalopram oxalate 10 mg tablet 10 mg PO DAILY DEPRESSION 12/15/21 hydrochlorothiazide 25 mg tablet 25 mg PO DAILY FLUID 12/15/21 insulin glargine 100 unit/mL (3 mL) subcutaneous pen (Lantus Solostar U-100 Insulin) 6 unit subcut QPM DM 12/15/21 meclizine 25 mg tablet 25 mg PO Q6H PRN Vertigo 12/15/21 multivitamin 1 tab PO DAILY SUPPLEMENT 12/15/21 vitamin B complex 1 tab PO DAILY SUPPLEMENT 12/15/21 metformin 500 mg tablet,extended release 24 hr 1,000 mg PO DAILY DM 03/17/22 metformin 500 mg tablet,extended release 24 hr 500 mg PO DAILY DM 03/17/22 metoprolol tartrate 50 mg tablet 50 mg PO BID HEART 03/17/22 oxycodone 5 mg tablet 5 mg PO QHS 1 week #7 tabs 03/18/22 prednisone 20 mg tablet 40 mg PO DAILY 5 days #10 tabs 03/18/22 Hospital Course Operations None Procedures None Summary of Care Provided Minutes Spent on Discharge: 36 Hospital Course: AVRIL STAFFORD, is a 61 M who presented to the emergency department at [facility] on 03/17/2022 with lower lip swelling.? Patient stated the swelling began approximately 4 hours prior to presentation at 10:00am and invo lved only his lower lip.? He indicated he took 2 [id number] Benadryl and went to the urgent care at which point they sent him to the emergency department.? In 2012 the patient had an extensive admission for angioedema which resulted in emergent intubation and a prolonged ICU course and eventual tracheostomy.? At that time, it was felt his angioedema was related to lisinopril and Wellbutrin and those were discontinued at that time.? Patient indicated he had not started any new medications and not had any specific dietary changes.? He did not remember ever following up with allergy/immunology after discharge after above admission. He had an extensive work-up at that time of admission and had a normal C1 esterase as well as complement activity.? He felt that his swelling improved after treatment in the emergency department and was frustrated he was not able to go home.On admission his vital signs were temperature of 97, heart rate of 84, blood pressure of 159/98, respiratory rate of 16, and oxygen saturations were 97% on room air.? His CBC was unremarkable.? His CMP showed normal electrolytes and renal function with a glucose of 232 and an elevated ALT and AST slightly with an ALT of 89 and an AST of 60.? These have not been previously elevated but the last data we have is from 2017. In the emergency department he was treated with Solu-Medrol 125 mg x 1 dose, famotidine, and Benadryl.? We elected to admit him to the intensive care unit given his previous history of severe angioedema and extensive hospitalization. We maintained treatment with Solu-Medrol 60 every 6, Benadryl 25 mg every 6 hours and famotidine twice daily. He was initiated on a clear liquid diet and a dvance to a regular diet on the morning of discharge. The patient progressed well and his swelling decreased and was normalized by the morning of 03/18/2022. We did review his medication list and he was on a couple medications that could be inciting his angioedema including his tizanidine and gabapentin. We elected to discontinue both medications upon discharge. Unfortunately most muscle relaxants have a side effect of angioedema and we are therefore unable to substitute a new muscle relaxant for his tizanidine. Amitriptyline also carries a similar side effect so we went ahead and prescribed 5 mg of oxycodone nightly for 7 days and instructed him to follow-up as an outpatient. I gave him a referral and instructed him to call allergy and immunology physician to have outpatient follow-up as soon as possible with regards to his angioedema given this is happened twice. Obviously this episode was much less severe than his initial episode but we did feel it prudent for him to follow-up with allergy immunology for further work-up if deemed appropriate. He is also follow-up with his primary care physician within the next week. We did discuss with him that his blood sugars would run a little bit higher because the steroid burst that he was given upon discharge at 40 mg daily for 5 days. We also noted that he had some mild transaminitis during his hospitalization. Upon review of previous laboratory data which was from time 2017 his transaminases were normal at that point. I suspect he may have some fatty liver and recommend outpatient follow- up for consideration for further work-up. Discharge diagnoses: Angioedema Transaminitis-suspected hepatic steatosis DM-2 Hypertension Diabetic neuropathy Obstructive sleep apnea Chronic pain Morbid obesity Depression Physical Exam Narrative Patient states he feels much better and his lip is back to his baseline. Const alert, oriented x3, no apparent distress, healthy appearing and well nourished Constitutional Narrative: Morbidly obese upper middle-aged white male sitting up bed, he just received his breakfast and is eating and watching television General Appearance: cooperative, comfortable, well kempt and well developed Orientation / Consciousness: awake Exam Limitations: no limitations Nutritional Appearance: morbidly obese HEENT normocephalic, head/scalp atraumatic, hearing grossly normal bilaterally and jonathan st oral mucous membranes HEENT Narrative: No further lip swelling noted, Mallampati is 3, no thrush Eyes PERRL, EOMs intact bilaterally and conjunctivae normal Eyes Narrative: No scleral icterus Neck no lymphadenopathy, supple, no JVD and no carotid bruits Neck Narrative: Neck is short and thick, tracheostomy site scar are noted in the anterior neck with a posterior vertical 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 Resp normal respiratory effort, no retractions, no use of accessory muscles and clear to auscultation bilaterally Resp Narrative: Distant secondary to body habitus but clear Auscultation: Negative for crackles, rales, rhonchi or wheezes Cardio regular rate, regular rhythm, S1 normal heart sound, S2 normal heart sound, no murmurs, no rub, no gallops, no clicks and no JVD GI normal to inspection, nondistended, normoactive bowel sounds, soft to palpation, non-tender and non-distended GI Narrative: Protuberant abdomen Extremity no clubbing, cyanosis or edema Extremity Narrative: 2+ pedal pulses Skin no rashes or lesions noted, no wounds, skin turgor normal and no jaundice Neuro oriented x3, CN's II-XII intact bilaterally, moves all extremities and no focal motor deficits Sensorium / Orientation: awake, alert, oriented to person, oriented to place and oriented to time Speech: speech normal Motor Exam: strength 5/5 throughout Psych affect normal Weight / BMI Weight Weight: 129.1 kg Body Mass Index (BMI) 42.0 ABG / Lab / Microbiology Data Result Diagrams: 03/17/22 14:10 03/18/22 05:15 Laboratory: Laboratory Results - last 24 hr 03/17/22 14:10: WBC 10.8, RBC 5.27, Hgb 15.4, Hct 44.7, MCV 84.8, MCH 29.2, MCHC 34.5, RDW Std Deviation 40.0, RDW Coeff of Iza 13.1, Plt Count 283, MPV 9.8, Immature Gran % (Auto) 0.800, Neut % (Auto) 69.8, Lymph % (Auto) 18.0 L, Traverse % (Auto) 7.5, Eos % (Auto) 3.0, Baso % (Auto) 0.9, Absolute Neuts (auto) 7.5, Absolute Lymphs (auto) 1.95, Nucleated RBC % 0 03/17/22 14:10: Sodium 136, Potassium 3.9, Chloride 98, Carbon Dioxide 31.0, Anion Gap 7, BUN 19 H, Creatinine 0.93, Estim Creat Clear Calc 83.41, Est GFR (MDRD) Af Amer 106, Est GFR (MDRD) Non-Af 87, BUN/Creatinine Ratio 20.4 H, Glucose 232 H, Calcium 9.9, Total Bilirubin 0.40, AST 60 H, ALT 89 H, Alkaline Phosphatase 103, Total Protein 8.2, Albumin 3.8, Globulin 4.4 H, Albu min/Globulin Ratio 0.9 03/17/22 18:42: POC Glucose 302 H 03/17/22 21:18: POC Glucose 333 H 03/18/22 05:15: Sodium 132 L, Potassium 4.2, Chloride 95 L, Carbon Dioxide 27.0, Anion Gap 10, BUN 18, Creatinine 0.81, Estim Creat Clear Calc 95.77, Est GFR (MDRD) Af Amer 124, Est GFR (MDRD) Non-Af 103, BUN/Creatinine Ratio 22.2 H, Glucose 382 H, Calcium 9.9, Phosphorus 3.2, Magnesium 2.2, Total Bilirubin 0.50, Direct Bilirubin 0.15, AST 35, ALT 76 H, Alkaline Phosphatase 107, Total Protein 8.3 H, Albumin 3.8, Globulin 4.5 H 03/18/22 06:53: POC Glucose 382 H Meaningful Use Info Meaningful Use Diagnoses (Choose all that apply): None applicable Discharge Plan Admission Admit Date/Time: 03/17/22 14:33 Primary Reason for Your Visit: Angioedema Attending Provider: Ava Gordillo Primary Care Provider: Xu Baumann Discharge Orders/Prescriptions Prescriptions: New prednisone 20 mg tablet 40 mg PO DAILY 5 Days Qty: 10 0RF oxycodone 5 mg tablet 5 mg PO QHS 7 Days Qty: 7 0RF Continued Trulicity 0.75 mg/0.5 mL pen injector 0.75 mg subcut TU Lantus Solostar U-100 Insulin 100 unit/mL (3 mL) insulin pen 6 unit subcut QPM meclizine 25 mg tablet 25 mg PO Q6H PRN (Reason: Vertigo) escitalopram oxalate 10 mg tablet 10 mg PO DAILY vitamin B complex Tablet 1 tab PO DAILY hydrochlorothiazide 25 mg tablet 25 mg PO DAILY multivitamin Tablet 1 tab PO DAILY ascorbic acid (vitamin C) 1,000 mg tablet 1,000 mg PO DAILY metformin 500 mg tablet extended release 24 hr 1,000 mg PO DAILY Label Comments: PT TAKES 2 TABS (1000 MG) IN THE AM AND 1 TAB (500 MG) IN THE EVENING metformin 500 mg tablet extended release 24 hr 500 mg PO DAILY Label Comments: PT TAKES 2 TABS (1000 MG) IN THE AM AND 1 TAB (500 MG) IN THE EVENING metoprolol tartrate 50 MG tablet 50 mg PO BID Label Comments: heart/ blood pressure Discontinued tizanidine 4 mg capsule 4 mg PO Q8H PRN (Reason: MUSCLE SPASMS) gabapentin 300 MG capsule 900 mg PO TIDCM Label Comments: nerve pain Referrals / Follow Up: Xu Baumann DO [Primary Care Provider] - Within 2 Weeks Trip Rowan MD [COURTESY STAFF PHYSICIAN] - See Referral Note (call today for an appt ANGELA for angioedema) Disposition Disposition (needs filled in before D/C Order can be placed): Home, Self Care Charges/Coding Visit Charges Inpatient E&M: 09733 Disch Hosp
== END 2022-03-18 10:51 | disposition home or self-care (01) ==
LOC: ED 14:29 → ICU 14:59
PROVIDERS: Admitting Provider Internal Medicine; Emergency Provider Emergency Medicine; PCP Student in an Organized Health Care Education/Training Program; Visit Provider Internal Medicine
DX: T78.3XXA Angioneurotic edema, initial encounter (principal); E11.40 Type 2 diabetes mellitus with diabetic neuropathy, unspecified; Z68.41 Body mass index [BMI] 40.0-44.9, adult; E66.01 Morbid (severe) obesity due to excess calories; Z79.4 Long term (current) use of insulin; K76.0 Fatty (change of) liver, not elsewhere classified; G47.33 Obstructive sleep apnea (adult) (pediatric); I10 Essential (primary) hypertension; F32.A Depression, unspecified; Z87.891 Personal history of nicotine dependence; R74.01 Elevation of levels of liver transaminase levels; G89.29 Other chronic pain; Z79.899 Other long term (current) drug therapy; M19.90 Unspecified osteoarthritis, unspecified site; N40.0 Benign prostatic hyperplasia without lower urinary tract symptoms; Z86.718 Personal history of other venous thrombosis and embolism
CPT/HCPCS: 80048; 80053; 80076; 82962; 83735; 84100; 85025; 96372; 96374; 96375; 96376; 99218; 99251; 99284; A4216; G0378; G0463; J3490

== ENCOUNTER 2022-08-30 21:20 | Emergency (ER) | payer MEDICARE, OTHER, SELFPAY ==
[2022-08-30 21:21] VITALS: BP 122/79; PULSE 129; RESP 16; TEMP 37.9; O2SAT 92; BMI 36.6
--- NOTE | 2022-08-30 21:47 | EKG12_ITS ---
Test Reason : WEAKNESS Blood Pressure : / mmHG Vent. Rate : 119 BPM Atrial Rate : 119 BPM P-R Int : 168 ms QRS Dur : 132 ms QT Int : 330 ms P-R-T Axes : 074 -78 053 degrees QTc Int : 464 ms Sinus tachycardia with Premature atrial complexes Right bundle branch block Left anterior fascicular block Bifascicular block Inferior infarct , age undetermined, cannot be excluded Abnormal ECG Confirmed by KAYLA GAN, DESTIN ([id number]), state editor VALERIE BROCK ([id number]) on 09/02/2022 11:05:32 AM Referred By: Confirmed By:DESTIN GARZA MD
[2022-08-30] MEDS: 0.9% Normal Saline 1,000 ML 999 ML IV (22:03)
[2022-08-30 22:06] VITALS: TEMP 37.6; O2SAT 92
--- NOTE | 2022-08-30 22:10 | RAD_ITS ---
STUDY: X-RAY CHEST REASON FOR EXAM: Male, 62 years old. fever cough TECHNIQUE: Single AP portable view of the chest. COMPARISON: 06/29/2016 FINDINGS: Poor inspiration with some bibasilar atelectasis. There is no demonstrated pleural abnormality. There is moderate cardiac enlargement. Normal mediastinum and frank. Normal visualized pulmonary arteries. Normal visualized aortic arch and descending thoracic aorta. Normal visualized thoracic spine. Normal visualized ribs, clavicles, and shoulders. There is no demonstrated abnormality of the visualized soft tissue structures of the upper abdomen. RAD/Chest 1 View (Portable) IMPRESSION: Poor inspiration with some bibasilar atelectasis. Electronically Signed: Lonnie Figueroa MD at 22:28 EST ,
[2022-08-30 22:17] LABS: Absolute Lymphocyte Count 0.71 X10^3/uL (0.83-4.51); Absolute Neutrophil Count 10.1 X10^3/uL (2.0-7.7); Basophil% 0.8 % (0-1); Eosinophil# 0.21 X10^3/uL; Eosinophils% 1.7 % (0-5); Hematocrit 49.1 % (40-54); Hemoglobin 16.3 g/dL (13.0-16.5); Lymphocyte # 0.71 X10^3/ul (0.83-4.51); Lymphocyte % 5.8 % (19-41); Mean Corp Hgb Conc 33.2 g/dL (32-36); Mean Corpuscular Hgb 28.1 pg (27.0-32.0); Mean Corpuscular Volume 84.5 fL (80-94); Mean Platelet Vol. 10.8 fl (6.2-12.0); Monocyte# 1.08 X10^3/uL; Monocyte% 8.8 % (0-10); NRBC Flagged by Analyzer 0 % (0-5); Neutrophil # 10.12 X10^3/uL (2.7-7.7); Platelet Count 281 K/mm3 (150-450); RBC Distribution Width SD 39.2 fl (35.1-43.9); Red Blood Count 5.81 M/mm3 (4.6-6.2); White Blood Count 12.3 K/mm3 (4.4-11.0)
--- NOTE | 2022-08-30 22:20 | EX.ED.DYSGE1 ---
HPI History of Present Illness Chief Complaint: Weakness Detail of Chief Complaint: Generalized weakness unable to rise from the floor Informant: patient, spouse/S.O. and family Onset/Context/Timing Onset: Today Context: Sudden Onset Timing: Continuous and Waxes and wanes Quality: Generalized weakness, slight cough, unaware that he had a fever Location: Systemic Maximum Severity: Severe Worsened by: Upright position Relieved by: Nothing Associated Symptoms Associated Symptoms: Shaking chills Narrative Narrative: Patient is a 63-year-old male with history of hyperlipidemia, obstructive sleep apnea, disc metabolic syndrome who presents with generalized weakness. He was unable to get up off the floor. Illness started today. He was unaware that he had a fever. Did complain of chills. He has slight runny nose. No ill contacts. No ear pain or decreased hearing. No sore throat. Chronic cough that is nonproductive. Does have history of COPD per . He quit smoking several years ago. He denies nausea, vomit diarrhea. Denies dysuria, frequency, urgency or hematuria. He said decreased urine output. Prior similar symptoms: No Recent Illness/Hospitalization: No PFSH PFSH Medical History Ambulates with cane Angioedema Arthritis Back pain BPH (benign prostatic hyperplasia) BPPV (benign paroxysmal positional vertigo) Cardiology follow-up encounter Cervical spine tumor Chronic low back pain CPAP (continuous positive airway pressure) dependence Degenerative disc disease Depression Depression Diabetes mellitus type II, controlled Dietary restriction DVT (deep venous thrombosis) Dysmetabolic syndrome Elevated liver enzymes Essential hypertension Fatty liver Former smoker History of echocardiogram History of edema History of kidney stones History of meningitis (2010) History of osteomyelitis History of pain when walking History of steroid therapy Hypertension Insulin dependent diabetes mellitus Leg cramps Marijuana use Morbid obesity Obstructive sleep apnea MARNIE on CPAP Pre-operative cardiovascular exam, new EKG abnormalities c/w ischemia (11/26/21) Restless legs Rib injury Right carpal tunnel syndrome Shortness of breath on exertion Situational depression Vertigo Vitamin D deficiency Wears dentures Wears glasses Wears hearing aid Home Medications ascorbic acid (vitamin C) 1,000 mg tablet 1,000 mg PO DAILY SUPPLEMENT 12/15/21 [History Last Taken 03/17/22] dulaglutide 0.75 mg/0.5 mL subcutaneous pen injector (Trulicity) 0.75 mg subcut TU DM 03/28/22 [History Last Taken 03/10/22] escitalopram oxalate 10 mg tablet 10 mg PO DAILY DEPRESSION 12/15/21 [History Last Taken 03/17/22] hydrochlorothiazide 25 mg tablet 25 mg PO DAILY FLUID 12/15/21 [History Last Taken 03/16/22] insulin glargine 100 unit/mL (3 mL) subcutaneous pen (Lantus Solostar U-100 Insulin) 6 unit subcut QPM DM 12/15/21 [History Last Taken 03/16/22] meclizine 25 mg tablet 25 mg PO Q6H PRN Vertigo 12/15/21 [History Last Taken 3 Days Ago ~03/14/22] multivitamin 1 tab PO DAILY SUPPLEMENT 12/15/21 [History Last Taken 03/17/22] vitamin B complex 1 tab PO DAILY SUPPLEMENT 12/15/21 [History Last Taken 03/17/22] metformin 500 mg tablet,extended release 24 hr 1,000 mg PO DAILY DM 03/17/22 [History Last Taken 03/17/22] metformin 500 mg tablet,extended release 24 hr 500 mg PO DAILY DM 03/17/22 [History Last Taken 03/16/22] metoprolol tartrate 50 mg tablet 50 mg PO BID HEART 03/17/22 [History Last Taken 03/17/22] gabapentin 300 mg capsule mg 08/30/22 [History Last Taken Unknown] oxycodone 5 mg tablet 5 mg PO QHS PRN Pain 08/30/22 [History Last Taken Unknown] tizanidine 4 mg tablet 4 mg PO PRN PRN Muscle Spasm 08/30/22 [History Last Taken Unknown] Allergy/AdvReac Type Severity Reaction Status Date / Time CEE Inhibitors Allergy Severe Angioedema, Verified 08/30/22 21:27 Coma: pt intubated lisinopril Allergy Severe Angioedema, Verified 08/30/22 21:27 COMA, pt intubated bupropion HCl Allergy Angioedema Verified 08/30/22 21:27 [From Wellbutrin] Iodinated Contrast Media Allergy Unknown Verified 08/30/22 21:27 [Iodinated Contrast Media - IV Dye] Penicillins Allergy Hives Verified 08/30/22 21:27 shellfish derived Allergy Swelling Verified 08/30/22 21:27 promethazine [From Phenergan] AdvReac Intermediate restless Verified 08/30/22 21:27 legs Family History Father Alcohol abuse Drug abuse COPD (chronic obstructive pulmonary disease) Cirrhosis of liver CAD (coronary artery disease) Mother Breast cancer Brother Colon cancer Surgical History History of bronchoscopy (06/20/13) History of cervical spinal surgery History of colonoscopy (11/17/21) History of esophagogastroduodenoscopy (EGD) (12/09/15) History of inguinal hernia repair History of lithotripsy (09/20/07) History of tooth extraction History of tracheostomy (09/20/12) History of undescended testicle Social History household members: spouse housing: house Smoking Status: Former smoker quit date: 09/20/14 pack-years: 30 alcohol intake: never substance use type: marijuana ROS ROS ED Constitutional Constitutional ED: Reports chills, subjective and sweats; Denies weight loss Eyes Eyes: Denies blurry vision, change in vision or diplopia ENT ENT ED: Reports rhinorrhea; Denies ear pain or sore throat Cardiovascular Cardiovascular: Reports palpitations; Denies chest pain, orthopnea, paroxysmal nocturnal dyspnea or racing heartbeat Respiratory/Chest Respiratory/Chest: Reports cough and dyspnea; Denies dyspnea on exertion, orthopnea, paroxysmal nocturnal dyspnea or sputum Gastrointestinal Gastrointestinal: Reports abdominal pain; Denies constipation, diarrhea, melena or vomiting Genitourinary Genitourinary ED: Denies dysuria, hematuria or urinary frequency Musculoskeletal Musculoskeletal: Reports arthralgias, back pain and myalgias; Denies neck pain Integumentary Denies abscess, Abrasions or rash Neurologic Neurologic: Reports headache(s) and weakness; Denies paresthesias Hematologic/Lymphatic Hematologic/Lymphatic: Reports systems reviewed and no addt'l complaints, except as documented and anemia; Denies easy bleeding or easy bruising EXAM Physical Exam Const Vital Signs: 08/30/22 21:21 08/30/22 22:06 08/30/22 22:06 Temperature 100.2 F H 99.7 F H Temperature Source Temporal Oral Pulse Rate 129 H Respiratory Rate 16 Blood Pressure 122/79 H Blood Pressure Mean 93 Pulse Ox 92 92 Oxygen Delivery Method Room Air Room Air 08/30/22 22:21 08/30/22 23:00 Temperature Temperature Source Pulse Rate 122 H 120 H Respiratory Rate 24 H 14 Blood Pressure 137/89 H 119/74 Blood Pressure Mean 105 89 Pulse Ox 94 94 Oxygen Delivery Method Room Air Room Air Positive well nourished, well developed and obese Constitutional Narrative: Patient appears ill but not toxic. He is flushed. Monitor reveals a sinus tachycardia rate of 130+. General Appearance ED: well developed; Negative for NAD or pallor Nutritional Appearance: obese HEENT Reports dry mucous membranes HEENT Narrative: Head is atraumatic normocephalic. Ears normal. TMs normal. Uvula midline. No deviation with protrusion. No erythema or exudate in pharynx. Mouth ED: Yes dry mucous membranes Mouth: dry mucous membranes Eyes PERRL and EOMs intact bilaterally General Eye ED: Negative for pale conjunctiva or scleral icterus Neck no lymphadenopathy, supple and no JVD Chest Wall inspection of chest normal and palpation of chest normal Resp normal respiratory effort and clear to auscultation bilaterally Cardio regular rhythm, S1 normal heart sound, S2 normal heart sound and no murmurs Rate: tachycardic GI normal to inspection, nondistended, normoactive bowel sounds, non-tender, non-distended and no masses; Negative for hepatosplenomegaly Palpation: soft Back/Spine no CVA tenderness Extremity Extremity Narrative: Patient has delayed capillary refill. He does have stigmata of peripheral arterial disease lower extremity exam area DP pulses palpable bilateral. Capillary refill in his feet is 4 seconds. He also has delayed cap refill with the pression of his skin on his back and chest. Neuro oriented x3, CN's II-XII intact bilaterally and no sensory deficits noted Sensorium / Orientation: alert; Negative for orientation impaired Psych mental status grossly normal Skin No no rashes or lesions noted and no wounds Skin Narrative: Patient is flushed/generalized blanching erythematous rash. He is warm to touch. General Skin Exam: Negative for jaundice or pallor Lesions: No lesion noted Trauma: Negative for abrasion MDM MDM MDM Narrative Medical decision making narrative: Patient with flulike symptoms. Will test for COVID and influenza. Will obtain chest x-ray to evaluate for pneumonia. White count to evaluate for anemia and to assess white count differential. Because of his medical problems obtain basic metabolic panel to assess renal function, CO2 anion gap and electrolytes EKG was obtained to evaluate for cardiac ischemia. Clinically is dehydrated and 1 L of normal saline was ordered since he does not have history of congestive heart failure. Patient was reassessed at 2325. Was informed of his laboratory results. Heart rate is improved significantly. He is now smiling and more active. He was informed he has flulike symptoms from a viral infection. He was informed that he does not have influenza or COVID based on negative test. His blood is [place] at the 7. His CO2 anion gap are normal. This is due to his acute illness. Lab Data Attestation: I reviewed the patient's lab results. Lab results narrative: White count is elevated with a shift with no bandemia. Labs: Laboratory Results - last 24 hr 08/30/22 08/30/22 08/30/22 21:06 21:06 21:06 WBC 12.3 H RBC 5.81 Hgb 16.3 Hct 49.1 MCV 84.5 MCH 28.1 MCHC 33.2 RDW Std Deviation 39.2 RDW Coeff of Iza 13.0 Plt Count 281 MPV 10.8 Immature Gran % (Auto) 0.900 Neut % (Auto) 82.0 H Lymph % (Auto) 5.8 L [place] % (Auto) 8.8 Eos % (Auto) 1.7 Baso % (Auto) 0.8 Absolute Neuts (auto) 10.1 H Absolute Lymphs (auto) 0.71 L Nucleated RBC % 0 PT 13.1 INR 1.0 APTT 27.0 Sodium 134 L Potassium 3.6 Chloride 98 Carbon Dioxide 27.0 Anion Gap 9 BUN 16 Creatinine 1.01 Estim Creat Clear Calc 75.83 Est GFR (MDRD) Af Amer 96 Est GFR (MDRD) Non-Af 80 BUN/Creatinine Ratio 15.8 Glucose 347 H Lactic Acid Calcium 9.7 Total Bilirubin 0.40 AST 19 ALT 37 Alkaline Phosphatase 114 Total Protein 7.6 Albumin 3.7 Globulin 3.9 Albumin/Globulin Ratio 0.9 Urine Color Urine Clarity Urine pH Ur Specific [place] Urine Protein Urine Glucose (UA) Urine Ketones Urine Occult Blood Urine Nitrite Urine Bilirubin Urine Urobilinogen Ur Leukocyte Esterase Urine RBC Urine WBC Ur Squamous Epith Cells Urine Bacteria Urine Mucus 08/30/22 08/30/22 22:03 22:23 WBC RBC Hgb Hct MCV MCH MCHC RDW Std Deviation RDW Coeff of Iza Plt Count MPV Immature Gran % (Auto) Neut % (Auto) Lymph % (Auto) [place] % (Auto) Eos % (Auto) Baso % (Auto) Absolute Neuts (auto) Absolute Lymphs (auto) Nucleated RBC % PT INR APTT Sodium Potassium Chloride Carbon Dioxide Anion Gap BUN Creatinine Estim Creat Clear Calc Est GFR (MDRD) Af Amer Est GFR (MDRD) Non-Af BUN/Creatinine Ratio Glucose Lactic Acid 1.5 Calcium Total Bilirubin AST ALT Alkaline Phosphatase Total Protein Albumin Globulin Albumin/Globulin Ratio Urine Color Yellow Urine Clarity Clear Urine pH 6.0 Ur Specific [place] 1.015 Urine Protein 30 H Urine Glucose (UA) 1000 H Urine Ketones 15 H Urine Occult Blood Negative Urine Nitrite Negative Urine Bilirubin Negative Urine Urobilinogen Normal Ur Leukocyte Esterase Negative Urine RBC 0 SEEN Urine WBC 0 SEEN Ur Squamous Epith Cells 0 SEEN Urine Bacteria 0 SEEN Urine Mucus 0 SEEN Radiography Diagnostic Testing: Clinical Impression(s) from Imaging Studies Chest X-Ray 08/30/22 22:10 IMPRESSION: Poor inspiration with some bibasilar atelectasis. Electronically Signed: Lonnie Figueroa MD at 22:28 EST , Discharge Plan Triage Chief Complaint: Weakness Other Complaint: Fall ED Provider: Slade Thomas Dx/Rx/DC Orders Clinical Impression: Flu-like symptoms, Hyperglycemia due to type 2 diabetes mellitus, Sinus tachycardia, Fever, Acute dehydration, Generalized weakness Instructions: ED Viral Syndrome (Adult) Prescriptions: No Action Trulicity 0.75 mg/0.5 mL pen injector 0.75 mg subcut TU Lantus Solostar U-100 Insulin 100 unit/mL (3 mL) insulin pen 6 unit subcut QPM meclizine 25 mg tablet 25 mg PO Q6H PRN (Reason: Vertigo) escitalopram oxalate 10 mg tablet 10 mg PO DAILY vitamin B complex Tablet 1 tab PO DAILY hydrochlorothiazide 25 mg tablet 25 mg PO DAILY multivitamin Tablet 1 tab PO DAILY ascorbic acid (vitamin C) 1,000 mg tablet 1,000 mg PO DAILY metformin 500 mg tablet extended release 24 hr 1,000 mg PO DAILY Label Comments: PT TAKES 2 TABS (1000 MG) IN THE AM AND 1 TAB (500 MG) IN THE EVENING metformin 500 mg tablet extended release 24 hr 500 mg PO DAILY Label Comments: PT TAKES 2 TABS (1000 MG) IN THE AM AND 1 TAB (500 MG) IN THE EVENING metoprolol tartrate 50 MG tablet 50 mg PO BID Label Comments: heart/ blood pressure tizanidine 4 mg tablet 4 mg PO PRN PRN (Reason: Muscle Spasm) Label Comments: TAKE 1 TABLET BY MOUTH EVERY 6 HOURS NEEDED (MUSCLE SPASM). gabapentin 300 mg capsule Label Comments: TAKE 3 CAPSULES BY MOUTH THREE TIMES DAILY FOR 30 DAYS. oxycodone 5 mg tablet 5 mg PO QHS PRN (Reason: Pain) Primary Care Provider: Xu Baumann Referrals: Xu Baumann, DO [Primary Care Provider] - 3-5 Days if not improving Disposition Disposition: Home, Self Care
[2022-08-30 22:21] VITALS: BP 137/89; PULSE 122; RESP 24; O2SAT 94
[2022-08-30 22:31] LABS: Bacteria 0 SEEN /hpf (None Seen); Mucous, Urine 0 SEEN /hpf (<or=2+); Red Blood Cells-Urine 0 SEEN /hpf (0-5); Squamous Epithelial Cells - UA 0 SEEN /hpf (0-5); White Blood Cells 0 SEEN /hpf (0-5)
[2022-08-30 22:33] LABS: ALB/GLOB Ratio 0.9 RATIO (0.9-2.4); AST(SGOT) 19 U/L (15-37); Alanine Aminotransfer ALT/SGPT 37 U/L (16-61); Albumin, Serum 3.7 g/dL (3.2-5.0); Alkaline Phosphatase 114 U/L (45-117); Anion Gap 9 (5-15); BUN 16 mg/dL (7-18); BUN/Creat Ratio 15.8 RATIO (10-20); Calcium,Total 9.7 mg/dL (8.5-10.1); Chloride 98 mmol/L (98-107); Creatinine, Serum 1.01 mg/dL (0.70-1.30); EST Glomerular Filtration Rate 80 mL/min (>60); Est Glom Filt Rate - Afr Amer 96 mL/min (>60); Estimated Creatinine Clearance 75.83 ml/min; Globulin 3.9 g/dL (2.2-4.2); Glucose 347 mg/dL (74-106); Potassium 3.6 mmol/L (3.5-5.1); Protein, Total 7.6 g/dL (6.4-8.2); Sodium Level 134 mmol/L (136-145)
[2022-08-30 22:36] LABS: Prothrombin Time (Protime)PT. 13.1 SECONDS (11.7-14.9)
[2022-08-30 22:39] LABS: Color, Urine Yellow (Yellow); Glucose, Dipstick 1000 mg/dl (Normal); Ketone-Dipstick 15 mg/dl (Negative); Leukocyte Esterase-Dipstick Negative /ul (Negative); Nitrite-Dipstick Negative (Negative); Occult Blood-Urine Negative /ul (Negative); Protein-Dipstick 30 mg/dl (Negative); Specific Gravity, Urine 1.015 (1.002-1.030); Urine Bilirubin Dipstick Negative (Negative); Urine Clarity Clear (Clear); Urine Urobilinogen Normal (Normal)
[2022-08-30 22:40] LABS: Lactic Acid 1.5 mmol/L (0.4-1.9)
[2022-08-30 23:00] VITALS: BP 119/74; PULSE 120; RESP 14; O2SAT 94
[2022-08-30] MEDS: Insulin Lispro 100 UNIT/ML INSULN.PEN SC (23:39)
[2022-08-30 23:40] VITALS: BP 115/75; PULSE 124; RESP 19; O2SAT 93
[2022-08-31 15:20] LABS: Bedside Glucose 341 mg/dL (74-106)
== END 2022-08-30 23:50 | disposition home or self-care (01) ==
PROVIDERS: Emergency Provider Emergency Medicine; PCP Student in an Organized Health Care Education/Training Program; Visit Provider Emergency Medicine
DX: E11.65 Type 2 diabetes mellitus with hyperglycemia (principal); J44.9 Chronic obstructive pulmonary disease, unspecified; I73.9 Peripheral vascular disease, unspecified; Z79.4 Long term (current) use of insulin; Z87.891 Personal history of nicotine dependence; I10 Essential (primary) hypertension; R00.0 Tachycardia, unspecified; E86.0 Dehydration; B34.9 Viral infection, unspecified; E78.5 Hyperlipidemia, unspecified; F12.90 Cannabis use, unspecified, uncomplicated; R50.9 Fever, unspecified; G47.33 Obstructive sleep apnea (adult) (pediatric); R53.1 Weakness; R05.3 Chronic cough; R00.2 Palpitations
CPT/HCPCS: 71045; 80053; 81001; 82962; 83605; 85025; 85610; 85730; 87040; 87086; 87088; 87428; 93005; 99285; J7030; A4216

== ENCOUNTER 2023-10-22 16:00 | Emergency (ER) | payer MEDICARE, OTHER, SELFPAY ==
[2023-10-22 16:01] VITALS: BP 158/99; PULSE 87; RESP 14; TEMP 36.8; O2SAT 97; BMI 46.0
--- NOTE | 2023-10-22 16:26 | EX.ED.DYSGE1 ---
HPI History of Present Illness Chief Complaint: Suicidal Informant: patient and family Narrative Narrative: Patient presents with family secondary to suicidal ideation. He has been dealing with this on and off since last fall. He reported has a plan to shoot himself. Patient's states he has had 3 major events in his life that have really triggered some chronic issues. He did suffer from meningitis and bilateral pneumonia in the past. He then was hospitalized 2 weeks in the ICU with angioedema and had a tracheostomy. 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 He continues to have chronic back pain with deteriorating disks. He is in pain management. He reportedly is in pain every day. 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 states today the boss called her asking her to come pick him up concerned that he was going to go home and hurt himself. [facility] Medical History (Updated 10/22/23 @ 21:[address] Krista Vazquez MD) Ambulates with cane Angioedema Arthritis Back pain BPH (benign prostatic hyperplasia) BPPV (benign paroxysmal positional vertigo) Cardiology follow-up encounter Cervical spine tumor Chronic low back pain CPAP (continuous positive airway pressure) dependence Degenerative disc disease Depression Diabetes mellitus type II, controlled Dietary restriction DVT (deep venous thrombosis) Dysmetabolic syndrome Elevated liver enzymes Essential hypertension Fatty liver Former smoker History of echocardiogram History of edema History of kidney stones History of meningitis (2010) History of osteomyelitis History of pain when walking History of steroid therapy Hypertension Insulin dependent diabetes mellitus Leg cramps Marijuana use Morbid obesity Obstructive sleep apnea MARNIE on CPAP Pre-operative cardiovascular exam, new EKG abnormalities c/w ischemia (11/26/21) Restless legs Rib injury Right carpal tunnel syndrome Shortness of breath on exertion Situational depression Vertigo Vitamin D deficiency Wears dentures Wears glasses Wears hearing aid Home Medications ascorbic acid (vitamin C) 1,000 mg tablet 1,000 mg PO DAILY SUPPLEMENT 12/15/21 [History Last Taken 03/17/22] dulaglutide 0.75 mg/0.5 mL subcutaneous pen injector (Trulicity) 0.75 mg subcut TU DM 12/15/21 [History Last Taken 03/10/22] hydrochlorothiazide 25 mg tablet 25 mg PO DAILY FLUID 12/15/21 [History Last Taken 03/16/22] insulin glargine 100 unit/mL (3 mL) subcutaneous pen (Lantus Solostar U-100 Insulin) 6 unit subcut QPM DM 12/15/21 [History Last Taken 03/16/22] meclizine 25 mg tablet 25 mg PO Q6H PRN Vertigo 12/15/21 [History Last Taken 3 Days Ago ~03/14/22] multivitamin 1 tab PO DAILY SUPPLEMENT 12/15/21 [History Last Taken 03/17/22] vitamin B complex 1 tab PO DAILY SUPPLEMENT 12/15/21 [History Last Taken 03/17/22] metformin 500 mg tablet,extended release 24 hr 1,000 mg PO DAILY DM 03/17/22 [History Last Taken 03/17/22] metformin 500 mg tablet,extended release 24 hr 500 mg PO DAILY DM 03/17/22 [History Last Taken 03/16/22] metoprolol tartrate 50 mg tablet 50 mg PO BID HEART 03/17/22 [History Last Taken 03/17/22] gabapentin 300 mg capsule 900 mg PO Q8H 08/30/22 [History Last Taken Unknown] bupropion HCl 150 mg 24 hr tablet, extended release 150 mg PO DAILY 10/22/23 [History Last Taken Unknown] nabumetone 500 mg tablet 500 mg PO BID 10/22/23 [History Last Taken Unknown] Allergy/AdvReac Type Severity Reaction Status Date / Time CEE Inhibitors Allergy Severe Angioedema, Verified 10/22/23 16:00 Coma: pt intubated lisinopril Allergy Severe Angioedema, Verified 10/22/23 16:00 COMA, pt intubated bupropion HCl Allergy Angioedema Verified 10/22/23 16:00 [From Wellbutrin] Iodinated Contrast Media Allergy Unknown Verified 10/22/23 16:00 [Iodinated Contrast Media - IV Dye] Penicillins Allergy Hives Verified 10/22/23 16:00 shellfish derived Allergy Swelling Verified 10/22/23 16:00 promethazine [From Phenergan] AdvReac Intermediate restless Verified 10/22/23 16:00 legs Family History Father Alcohol abuse Drug abuse COPD (chronic obstructive pulmonary disease) Cirrhosis of liver CAD (coronary artery disease) Mother Breast cancer Brother Colon cancer Surgical History History of bronchoscopy (06/20/13) History of cervical spinal surgery History of colonoscopy (11/17/21) History of esophagogastroduodenoscopy (EGD) (12/09/15) History of inguinal hernia repair History of lithotripsy (09/20/07) History of tooth extraction History of tracheostomy (09/20/12) History of undescended testicle Social History household members: spouse housing: house Smoking Status: Former smoker quit date: 09/20/14 pack-years: 30 alcohol intake: never substance use type: marijuana ROS ROS ED Constitutional Constitutional ED: Denies chills or fever(s) Eyes Eyes: Denies discharge from eye(s) ENT ENT ED: Denies discharge from eye(s), rhinorrhea or sore throat Cardiovascular Cardiovascular: Denies chest pain or palpitations Respiratory/Chest Respiratory/Chest: Denies cough or dyspnea Gastrointestinal Gastrointestinal: Denies abdominal pain, nausea or vomiting Genitourinary Genitourinary ED: Denies dysuria Musculoskeletal Musculoskeletal: Reports back pain; Denies extremity pain Integumentary Denies Abrasions or rash Neurologic Neurologic: Denies headache(s) or weakness Psychiatric Psychiatric: Denies anxiety or depression Allergic/Immunologic Allergic/Immunologic ED: Denies lip swelling or urticaria EXAM Physical Exam Const Vital Signs: 10/22/23 16:01 10/22/23 18:14 10/22/23 19:00 Temperature 98.2 F Temperature Source Temporal Pulse Rate 87 99 Respiratory Rate 14 18 16 Blood Pressure 158/99 H 142/83 H Blood Pressure Mean 118 102 Pulse Ox 97 95 97 Oxygen Delivery Method Room Air Room Air Positive well nourished and well developed General Appearance ED: well developed HEENT Reports moist mucous membranes Eyes EOMs intact bilaterally Chest Wall inspection of chest normal and palpation of chest normal Resp normal respiratory effort and clear to auscultation bilaterally Cardio regular rate and regular rhythm GI non-tender Auscultation: hypoactive bowel sounds Extremity normal to inspection Neuro oriented x3 and no sensory deficits noted Skin no rashes or lesions noted MDM MDM MDM Narrative Medical decision making narrative: Labwork for psychiatric clearance is obtained. Urinalysis obtained to evaluate for infection/hematuria. COVID test obtained. Lab Data Attestation: I reviewed the patient's lab results. Labs: Laboratory Results - last 24 hr 10/22/23 10/22/23 16:16 17:04 WBC 15.4 H RBC 5.70 Hgb 16.2 Hct 49.5 MCV 86.8 MCH 28.4 MCHC 32.7 RDW Std Deviation 40.0 RDW Coeff of Iza 12.8 Plt Count 334 MPV 10.4 Immature Gran % (Auto) 1.600 H Neut % (Auto) 69.6 Lymph % (Auto) 17.5 L [place] % (Auto) 7.4 Eos % (Auto) 2.9 Baso % (Auto) 1.0 Absolute Neuts (auto) 10.7 H Absolute Lymphs (auto) 2.69 Nucleated RBC % 0 Sodium 133 L Potassium 3.6 Chloride 97 L Carbon Dioxide 33.0 H Anion Gap 3 L BUN 22 H Creatinine 0.89 Estim Creat Clear Calc 108.24 Est GFR (MDRD) Af Amer 111 Est GFR (MDRD) Non-Af 92 BUN/Creatinine Ratio 24.7 H Glucose 124 H Calcium 10.0 Urine Color Yellow Urine Clarity Clear Urine pH 6.5 Ur Specific [place] 1.010 Urine Protein Negative Urine Glucose (UA) Normal Urine Ketones Negative Urine Occult Blood Negative Urine Nitrite Negative Urine Bilirubin Negative Urine Urobilinogen Normal Ur Leukocyte Esterase Negative Urine RBC 0 SEEN Urine WBC 0 SEEN Ur Squamous Epith Cells 0 SEEN Urine Bacteria 0 SEEN Urine Mucus 0 SEEN Urine Opiates Screen NEGATIVE Urine Methadone Screen NEGATIVE Ur Barbiturates Screen NEGATIVE Ur Phencyclidine Scrn NEGATIVE Ur Amphetamines Screen NEGATIVE MDMA (Ecstasy) Screen NEGATIVE U Benzodiazepines Scrn NEGATIVE Urine Cocaine Screen NEGATIVE U Cannabinoids Screen POSITIVE H Ur Drug Screen Comment Ethyl Alcohol 4.0 Treatment and Re-Evaluation :: CBC was a white count of 15.4 with normal differential. Hemoglobin is normal at 16.2. Chemistry studies largely unremarkable. Glucose is 124. Urinalysis reveals no acute infection. Tox screen is positive only for cannabinoids. EtOH is negative. COVID test is negative. Patient seen and evaluated by social work. She agrees that patient would benefit from inpatient treatment. Patient did get his evening medications here. Patient has been accepted at [facility] with transportation set up for 8:00 tomorrow morning. Patient be signed out to oncoming physician for observation overnight. I did give him a dose of Ativan p.o. to help with anxiety. Discharge Plan Triage Chief Complaint: Suicidal ED Provider: Krista Vazquez Dx/Rx/DC Orders Clinical Impression: Suicidal ideation Prescriptions: No Action Trulicity 0.75 mg/0.5 mL pen injector 0.75 mg subcut TU Lantus Solostar U-100 Insulin 100 unit/mL (3 mL) insulin pen 6 unit subcut QPM meclizine 25 mg tablet 25 mg PO Q6H PRN (Reason: Vertigo) vitamin B complex Tablet 1 tab PO DAILY hydrochlorothiazide 25 mg tablet 25 mg PO DAILY multivitamin Tablet 1 tab PO DAILY ascorbic acid (vitamin C) 1,000 mg tablet 1,000 mg PO DAILY metformin 500 mg tablet extended release 24 hr 1,000 mg PO DAILY Patient Comments: PT TAKES 2 TABS (1000 MG) IN THE AM AND 1 TAB (500 MG) IN THE EVENING metformin 500 mg tablet extended release 24 hr 500 mg PO DAILY Patient Comments: PT TAKES 2 TABS (1000 MG) IN THE AM AND 1 TAB (500 MG) IN THE EVENING metoprolol tartrate 50 MG tablet 50 mg PO BID Patient Comments: heart/ blood pressure gabapentin 300 mg capsule 900 mg PO Q8H Patient Comments: TAKE 3 CAPSULES BY MOUTH THREE TIMES DAILY FOR 30 DAYS. nabumetone 500 mg tablet 500 mg PO BID Patient Comments: TAKE 1 TABLET BY MOUTH TWICE A DAY WITH FOOD bupropion HCl 150 mg tablet extended release 24 hr 150 mg PO DAILY Patient Comments: TAKE 1 TABLET BY MOUTH EVERY DAY Primary Care Provider: Xu Baumann Referrals: Xu Baumann DO [Primary Care Provider] - Disposition Disposition: Psychiatric Hospital or Unit Discharge Location: [facility]
[2023-10-22 17:10] LABS: Bacteria 0 SEEN /hpf (None Seen); Mucous, Urine 0 SEEN /hpf (<or=2+); Red Blood Cells-Urine 0 SEEN /hpf (0-5); Squamous Epithelial Cells - UA 0 SEEN /hpf (0-5); White Blood Cells 0 SEEN /hpf (0-5)
[2023-10-22 17:13] LABS: Absolute Lymphocyte Count 2.69 X10^3/uL (0.83-4.51); Absolute Neutrophil Count 10.7 X10^3/uL (2.0-7.7); Basophil# 0.16 X10^3/uL; Eosinophil# 0.45 X10^3/uL; Eosinophils% 2.9 % (0-5); Hematocrit 49.5 % (40-54); Hemoglobin 16.2 g/dL (13.0-16.5); Lymphocyte # 2.69 X10^3/ul (0.83-4.51); Lymphocyte % 17.5 % (19-41); Mean Corp Hgb Conc 32.7 g/dL (32-36); Mean Corpuscular Hgb 28.4 pg (27.0-32.0); Mean Corpuscular Volume 86.8 fL (80-94); Mean Platelet Vol. 10.4 fl (6.2-12.0); Monocyte# 1.14 X10^3/uL; Monocyte% 7.4 % (0-10); NRBC Flagged by Analyzer 0 % (0-5); Neutrophil # 10.71 X10^3/uL (2.7-7.7); Neutrophil % 69.6 % (47-70); Platelet Count 334 K/mm3 (150-450); RBC Distribution Width CV 12.8 % (11.6-14.6); White Blood Count 15.4 K/mm3 (4.4-11.0)
[2023-10-22 17:26] LABS: Amphetamine Urine VISTA NEGATIVE (<1000 ng/mL); Barbiturate Urine VISTA NEGATIVE (< 200 ng/mL); Benzodiazepine Urine VISTA NEGATIVE (< 200 ng/mL); Cocaine Urine VISTA NEGATIVE (< 300 ng/mL); Color, Urine Yellow (Yellow); Ecstacy Urine VISTA NEGATIVE (< 500 ng/mL); Glucose, Dipstick Normal (Normal); Ketone-Dipstick Negative (Negative); Leukocyte Esterase-Dipstick Negative /ul (Negative); Methadone Urine VISTA NEGATIVE (< 300 ng/mL); Nitrite-Dipstick Negative (Negative); Occult Blood-Urine Negative /ul (Negative); PCP Urine VISTA NEGATIVE (< 25 ng/mL); Protein-Dipstick Negative (Negative); THC Urine VISTA POSITIVE (< 50 ng/mL); Urine Bilirubin Dipstick Negative (Negative); Urine Clarity Clear (Clear); Urine Urobilinogen Normal (Normal); Urine pH 6.5 (5.0 - 8.0); Vista UDS pH Range 6
[2023-10-22 17:32] LABS: Anion Gap 3 (5-15); BUN 22 mg/dL (7-18); BUN/Creat Ratio 24.7 RATIO (10-20); Chloride 97 mmol/L (98-107); Creatinine, Serum 0.89 mg/dL (0.70-1.30); EST Glomerular Filtration Rate 92 mL/min (>60); Est Glom Filt Rate - Afr Amer 111 mL/min (>60); Estimated Creatinine Clearance 108.24 ml/min; Glucose 124 mg/dL (74-106); Potassium 3.6 mmol/L (3.5-5.1); Sodium Level 133 mmol/L (136-145)
[2023-10-22] MEDS: Naproxen 500 MG Tablet PO (18:07)
[2023-10-22] MEDS: hydroCHLOROthiazide 25 MG Tablet PO (18:07)
[2023-10-22] MEDS: Gabapentin 300 MG Capsule 900 MG PO (18:07)
[2023-10-22] MEDS: metFORMIN HCl 1,000 MG Tablet 1000 MG PO (18:07)
[2023-10-22 18:14] VITALS: BP 142/83; PULSE 99; RESP 18; O2SAT 95
[2023-10-22 19:00] VITALS: RESP 16; O2SAT 97
[2023-10-22] MEDS: LORazepam 1 MG Tablet PO ×2 (19:02→22:52)
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
--- NOTE | 2023-10-22 19:34 | CM.ED ---
Social Work Patient referred for lara-psych placement at [facility]. Karen Felder LEAD CUSTODIAN, LEAD HOUSEKEEPER
--- NOTE | 2023-10-22 20:40 | ED.RN ---
PT ACCEPTED AT [facility] N2N [id number] SQUAD ETA 8AM 10/23/23
--- NOTE | 2023-10-22 21:16 | CPS ---
Patient stated he did not know his CPAP pressure settings but stated he does wear O2 bled in through machine. Patient also does not know how much O2 he wears at night with his machine., TELEHEALTH NURSE EDUCATOR set up CPAP machine for 12cm. H2O and bled in 1L O2.
[2023-10-22] MEDS: Insulin Glargine-YFGN 100 UNIT/ML Pen 20 UNIT SC (22:00)
[2023-10-22] MEDS: Metoprolol Tartrate 50 MG Tablet PO (22:08)
[2023-10-22 22:09] VITALS: BP 125/90; PULSE 101; RESP 16; O2SAT 93
[2023-10-22 22:20] LABS: Bedside Glucose 161 mg/dL (74-106)
[2023-10-22 23:00] VITALS: RESP 16; O2SAT 97
[2023-10-22 23:17] VITALS: PULSE 97; RESP 18; O2SAT 94
--- NOTE | 2023-10-22 23:18 | CPS ---
cpap pressure increased to 18 -per pt request original pressure not enough
[2023-10-23] VITALS (8 sets, daily range): BP systolic 124; BP diastolic 89; PULSE 78–87; RESP 16; O2SAT 93–95
[2023-10-23] MEDS: Metoprolol Tartrate 25 MG Tablet 50 MG PO (09:09)
[2023-10-23] MEDS: hydroCHLOROthiazide 25 MG Tablet PO (09:09)
== END 2023-10-23 09:27 ==
PROVIDERS: Emergency Provider Emergency Medicine; PCP Student in an Organized Health Care Education/Training Program; Visit Provider Emergency Medicine
DX: R45.851 Suicidal ideations (principal); Z79.4 Long term (current) use of insulin; E11.9 Type 2 diabetes mellitus without complications; G89.29 Other chronic pain; F12.90 Cannabis use, unspecified, uncomplicated; I10 Essential (primary) hypertension; G47.33 Obstructive sleep apnea (adult) (pediatric); Z79.84 Long term (current) use of oral hypoglycemic drugs; Z79.899 Other long term (current) drug therapy; Z86.718 Personal history of other venous thrombosis and embolism; Z87.891 Personal history of nicotine dependence
CPT/HCPCS: 80048; 80307; 80320; 81001; 82962; 85025; 87635; 94660; 99284; G0480

== ENCOUNTER 2025-07-09 08:44 | Day surgery (SDC) | payer MEDICARE, BC, SELFPAY ==
--- NOTE | 2025-07-03 21:35 | PAT.ANESEVAL ---
Pre-Assessment Diagnosis/Proposed Procedure Planned Operative Procedure(s): CAUDAL BLOCK Anesthesia History Anesthesia History - poultry sexer: Anesthesia History - poultry sexer Hx Hospitalization No 07/03/25 13:57 Any Problems With Anesthesia No 07/03/25 13:57 Cholinesterase deficiency No 07/03/25 13:57 You/Your Family Experience No 07/03/25 13:57 fever (hyperthermia) with Relationship Recent Exposure to Contagious No 01/22/22 06:34 Disease Does patient have nerve No 07/03/25 13:57 stimulator Patient instructed to have device shut off --Does patient have Pacemaker or ICD? When Was Last Pacemaker Check QUESTION #4 FULL TEXT: You/Your Family Experience fever (hyperthermia) with Anesthesia Last Oral Intake Last Oral intake: Last Oral Intake NPO since Meds taken in AM with sips of water? Meds patient instructed to take am of surgery PONV PONV - poultry sexer: PONV - poultry sexer Female No 07/03/25 13:57 HX of Motion Sickness No 07/03/25 13:57 HX of N/V After Surgery No 07/03/25 13:57 Non-Smoker Yes 07/03/25 13:57 Duration of Surgery greater No 07/03/25 13:57 than 60 minutes Number of Risk Factors 1 07/03/25 13:57 PONV Score Low Risk 07/03/25 13:57 Height & Weight Height & Weight: Anesthesia: Height & Weight Height 5 ft 6 in 10/22/23 16:01 Respiratory Assessment Respiratory Assessment - poultry sexer: Respiratory Tract Infection Hx - poultry sexer Hx Respiratory Tract Infection No 07/03/25 13:57 STOP Sleep Apnea STOP Sleep Apnea - poultry sexer: STOP Sleep Apnea - poultry sexer Hx Hypertension Yes 07/03/25 13:57 Hx Sleep Apnea Yes 07/03/25 13:57 CPAP Yes 07/03/25 13:57 BIPAP No 07/03/25 13:57 Do you snore loudly (louder than talking or can be heard Do you often feel tired/ fatigued/ sleepy during daytime? Has anyone observed you stop breathing during sleep? STOP Results Positive 07/03/25 13:57 QUESTION #5 FULL TEXT : Do you snore loudly (louder than talking or can be heard through closed doors)? 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 Specify any problems Hx of Preganancy in last 3 N/A 07/03/25 13:57 Months Nurse Filling Out Transfusion TARIK 07/03/25 13:57 & Questions: Date: 07/03/25 07/03/25 13:57 Time: 13:59 07/03/25 13:57 Patient unable to answer at this time (ie. confused, unrespo /Reproduction History /Reproductive History - poultry sexer: /Reproductive Hx- poultry sexer Hx Now No 07/03/25 13:57 Gestational Age (in weeks): EDC: Hx Hx Para Hx Section SAB No 01/13/22 09:05 PFSH Medical History (Updated 07/03/25 @ 13:57 by Olga Kurtz) Stroke/cerebrovascular accident Angioedema Wears hearing aid Wears glasses Wears dentures Depression Insulin dependent diabetes mellitus Ambulates with cane Arthritis Fatty liver DVT (deep venous thrombosis) Restless legs Back pain Vertigo Dietary restriction Former smoker CPAP (continuous positive airway pressure) dependence Shortness of breath on exertion Leg cramps History of pain when walking History of edema Hypertension Rib injury History of echocardiogram Cardiology follow-up encounter BPH (benign prostatic hyperplasia) Vitamin D deficiency Marijuana use Situational depression MARNIE on CPAP Dysmetabolic syndrome Obstructive sleep apnea Degenerative disc disease Chronic low back pain BPPV (benign paroxysmal positional vertigo) History of osteomyelitis History of meningitis (2010) History of kidney stones Elevated liver enzymes Right carpal tunnel syndrome Diabetes mellitus type II, controlled Essential hypertension Pre-operative cardiovascular exam, new EKG abnormalities c/w ischemia (11/26/21) Morbid obesity Cervical spine tumor Home Medications ?Medication ?Instructions ?Recorded ?Last Taken ?Type ascorbic acid (vitamin C) 1,000 mg 1,000 mg PO DAILY SUPPLEMENT 12/15/21 03/17/22 History tablet hydrochlorothiazide 25 mg tablet 25 mg PO DAILY FLUID 12/15/21 03/16/22 History insulin glargine 100 unit/mL (3 22 unit subcut QPM DM 12/15/21 03/16/22 History mL) subcutaneous pen (Lantus Solostar U-100 Insulin) meclizine 25 mg tablet 25 mg PO Q6H PRN Vertigo 12/15/21 3 Days Ago History ~03/14/22 multivitamin 1 tab PO DAILY SUPPLEMENT 12/15/21 03/17/22 History vitamin B complex 1 tab PO DAILY SUPPLEMENT 12/15/21 03/17/22 History metformin 500 mg tablet,extended 1,000 mg PO DAILY DM 03/17/22 03/17/22 History release 24 hr metformin 500 mg tablet,extended 500 mg PO DAILY DM 03/17/22 03/16/22 History release 24 hr metoprolol tartrate 50 mg tablet 50 mg PO BID HEART 03/17/22 03/17/22 History gabapentin 300 mg capsule 900 mg PO Q8H 08/30/22 Unknown History bupropion HCl 150 mg 24 hr tablet, 150 mg PO DAILY 10/22/23 Unknown History extended release semaglutide 2 mg/dose (8 mg/3 mL) 2 mg subcut QWEEK 07/03/25 06/27/25 History subcutaneous pen injector (Ozempic) Allergy/AdvReac Type Severity Reaction Status Date / Time CEE Inhibitors Allergy Severe Angioedema, Verified 07/03/25 13:38 Coma: pt intubated lisinopril Allergy Severe Angioedema, Verified 07/03/25 13:38 COMA, pt intubated bupropion HCl (From Allergy Angioedema Verified 07/03/25 13:38 Wellbutrin) Iodinated Contrast Media Allergy Unknown Verified 07/03/25 13:38 (Iodinated Contrast Media - IV Dye) Penicillins Allergy Hives Verified 07/03/25 13:38 shellfish derived Allergy Swelling Verified 07/03/25 13:38 promethazine (From Phenergan) AdvReac Intermediate restless Verified 07/03/25 13:38 legs Family History Father Alcohol abuse Drug abuse COPD (chronic obstructive pulmonary disease) Cirrhosis of liver CAD (coronary artery disease) Mother Breast cancer Brother Colon cancer Surgical History History of tooth extraction History of undescended testicle History of inguinal hernia repair History of tracheostomy (09/20/12) History of esophagogastroduodenoscopy (EGD) (12/09/15) History of lithotripsy (09/20/07) History of colonoscopy (11/17/21) History of bronchoscopy (06/20/13) History of cervical spinal surgery Social History household members: spouse housing: house Smoking Status: Former smoker quit date: 09/20/14 pack-years: 30 alcohol intake: never substance use type: marijuana Audit: Pertinent Findings Pertinent Findings EKG Perinent findings: 08/30/2022. Sinus tachycardia with PACs at 119 bpm. RBBB. LAFB. Inferior infarct, age undetermined, cannot be excluded. Echo (EF%) pertinent findings: December 19, 2021. EF is 65%. No regional wall motion abnormalities noted. Valves were not well visualized. Consult pertinent findings: December 19, 2021. Dr. Soler. 1. Preop cardiovascular exam. New EKG abnormalities conforming with ischemia. Right bundle branch block, left anterior fascicular block, inferior [place] noted on the EKG. Plan for echo to assess his ventricular function. If all is normal patient is cleared for this low risk procedure.(see above). 2. Bifascicular block-bifascicular block appears to be fairly recent. Continue to monitor to ensure there is no progression. 3. Hypertension-under fair control. Continue beta-lizette and hydrochlorothiazide. Recommendation Anesthesia Recommendation Anesthesia recommendation: OPTIMIZED for anesthesia
[2025-07-09] VITALS (8 sets, daily range): BP systolic 111–147; BP diastolic 65–90; PULSE 86–99; RESP 16–20; TEMP 36.1–36.9; O2SAT 92–99; BMI 37.8
--- NOTE | 2025-07-09 09:07 | PCM.PRE.AN2 ---
ASA Classification* ASA Classification ASA Classification: 3 Assessment & Plan Anesthesia* Anesthesia Assessment Anesthesia Assessment: Discussed sedation and/or anesthesia options, risks, benefits, and alternatives with patient/parents/legal guardian/POA. Questions invited. The patient/parents/legal guardian/POA seems to understand and agrees to proceed with anesthesia plan. Reviewed the physical assessment, medical history, allergy history and patient home medications list prior to surgery/procedure/anesthetic and documented any changes. Performed airway and anesthesia risk assessments. Anesthesia Type Anesthesia Type: MAC Anesthesia Focused Assessment* Airway Assessment Mouth opens: >3 cm Mallampati Score: II Labs Anesthesia Preop lab: CBC WBC, (4.4-11.0) 15.4 K/mm3 H 10/22/23, 16:16 RBC, (4.6-6.2) 5.70 M/mm3 10/22/23, 16:16 Hgb, (13.0-16.5) 16.2 g/dL 10/22/23, 16:16 Hct, (40-54) 49.5 % 10/22/23, 16:16 Plt Count, (150-450) 334 K/mm3 10/22/23, 16:16 CHEMISTRY Potassium, (3.5-5.1) 3.6 mmol/L 10/22/23, 16:16 Sodium, (136-145) 133 mmol/L L 10/22/23, 16:16 Magnesium, (1.6-2.6) 2.2 mg/dL 03/18/22, 05:15 Phosphorus, (2.5-4.9) 3.2 mg/dL 03/18/22, 05:15 BUN, (7-18) 22 mg/dL H 10/22/23, 16:16 Creatinine, (0.70-1.30) 0.89 mg/dL 10/22/23, 16:16 Glucose, (74-106) 124 mg/dL H 10/22/23, 16:16 POC Glucose, (74-106) 161 mg/dL H 10/22/23, 21:58 TSH, (0.358-3.74) 1.63 uIU/mL 09/05/16, 09:00 COAG PT, (11.7-14.9) 13.1 SECONDS 08/30/22, 21:06 Pre-Assessment Diagnosis/Proposed Procedure Planned Operative Procedure(s): CAUDAL BLOCK Anesthesia History Anesthesia History - track manager: Anesthesia History - track manager Hx Hospitalization No 07/03/25 13:57 Any Problems With Anesthesia No 07/03/25 13:57 Cholinesterase deficiency No 07/03/25 13:57 You/Your Family Experience No 07/03/25 13:57 fever (hyperthermia) with Relationship Recent Exposure to Contagious No 01/22/22 06:34 Disease Does patient have nerve No 07/03/25 13:57 stimulator Patient instructed to have device shut off --Does patient have Pacemaker or ICD? When Was Last Pacemaker Check QUESTION #4 FULL TEXT: You/Your Family Experience fever (hyperthermia) with Anesthesia Last Oral Intake Last Oral intake: Last Oral Intake NPO since Meds taken in AM with sips of water? Meds patient instructed to take am of surgery PONV PONV - track manager: PONV - track manager Female No 07/03/25 13:57 HX of Motion Sickness No 07/03/25 13:57 HX of N/V After Surgery No 07/03/25 13:57 Non-Smoker Yes 07/03/25 13:57 Duration of Surgery greater No 07/03/25 13:57 than 60 minutes Number of Risk Factors 1 07/03/25 13:57 PONV Score Low Risk 07/03/25 13:57 Height & Weight Height & Weight: Anesthesia: Height & Weight Height 5 ft 6 in 10/22/23 16:01 Respiratory Assessment Respiratory Assessment - track manager: Respiratory Tract Infection Hx - track manager Hx Respiratory Tract Infection No 07/03/25 13:57 STOP Sleep Apnea STOP Sleep Apnea - track manager: STOP Sleep Apnea - track manager Hx Hypertension Yes 07/03/25 13:57 Hx Sleep Apnea Yes 07/03/25 13:57 CPAP Yes 07/03/25 13:57 BIPAP No 07/03/25 13:57 Do you snore loudly (louder than talking or can be heard Do you often feel tired/ fatigued/ sleepy during daytime? Has anyone observed you stop breathing during sleep? STOP Results Positive 07/03/25 13:57 QUESTION #5 FULL TEXT : Do you snore loudly (louder than talking or can be heard through closed doors)? 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 Specify any problems Hx of Preganancy in last 3 N/A 07/03/25 13:57 Months Nurse Filling Out Transfusion TARIK 07/03/25 13:57 & Questions: Date: 07/03/25 07/03/25 13:57 Time: 13:59 07/03/25 13:57 Patient unable to answer at this time (ie. confused, unrespo /Reproduction History /Reproductive History - track manager: /Reproductive Hx- track manager Hx Now No 07/03/25 13:57 Gestational Age (in weeks): EDC: Hx Hx Para Hx Section SAB No 01/13/22 09:05 Active Medications Active Medications: Current Medications Generic Name Dose Route Start Last Admin Trade Name Freq PRN Reason Stop Dose Admin Lactated Ringer's 1,000 mls @ 15 mls/hr 07/09/25 09:00 IV .Q48H JIMMY PFSH Medical History Stroke/cerebrovascular accident Angioedema Wears hearing aid Wears glasses Wears dentures Depression Insulin dependent diabetes mellitus Ambulates with cane Arthritis Fatty liver DVT (deep venous thrombosis) Restless legs Back pain Vertigo Dietary restriction Former smoker CPAP (continuous positive airway pressure) dependence Shortness of breath on exertion Leg cramps History of pain when walking History of edema Hypertension Rib injury History of echocardiogram Cardiology follow-up encounter BPH (benign prostatic hyperplasia) Vitamin D deficiency Marijuana use Situational depression MARNIE on CPAP Dysmetabolic syndrome Obstructive sleep apnea Degenerative disc disease Chronic low back pain BPPV (benign paroxysmal positional vertigo) History of osteomyelitis History of meningitis (2010) History of kidney stones Elevated liver enzymes Right carpal tunnel syndrome Diabetes mellitus type II, controlled Essential hypertension Pre-operative cardiovascular exam, new EKG abnormalities c/w ischemia (11/26/21) Morbid obesity Cervical spine tumor Home Medications ?Medication ?Instructions ?Recorded ?Last Taken ?Type ascorbic acid (vitamin C) 1,000 mg 1,000 mg PO DAILY SUPPLEMENT 12/15/21 03/17/22 History tablet hydrochlorothiazide 25 mg tablet 25 mg PO DAILY FLUID 12/15/21 03/16/22 History insulin glargine 100 unit/mL (3 22 unit subcut QPM DM 12/15/21 03/16/22 History mL) subcutaneous pen (Lantus Solostar U-100 Insulin) meclizine 25 mg tablet 25 mg PO Q6H PRN Vertigo 12/15/21 3 Days Ago History ~03/14/22 multivitamin 1 tab PO DAILY SUPPLEMENT 12/15/21 03/17/22 History vitamin B complex 1 tab PO DAILY SUPPLEMENT 12/15/21 03/17/22 History metformin 500 mg tablet,extended 1,000 mg PO DAILY DM 03/17/22 03/17/22 History release 24 hr metformin 500 mg tablet,extended 500 mg PO DAILY DM 03/17/22 03/16/22 History release 24 hr metoprolol tartrate 50 mg tablet 50 mg PO BID HEART 03/17/22 03/17/22 History gabapentin 300 mg capsule 900 mg PO Q8H 08/30/22 Unknown History bupropion HCl 150 mg 24 hr tablet, 150 mg PO DAILY 10/22/23 Unknown History extended release semaglutide 2 mg/dose (8 mg/3 mL) 2 mg subcut QWEEK 07/03/25 06/27/25 History subcutaneous pen injector (Ozempic) Allergy/AdvReac Type Severity Reaction Status Date / Time CEE Inhibitors Allergy Severe Angioedema, Verified 07/03/25 13:38 Coma: pt intubated lisinopril Allergy Severe Angioedema, Verified 07/03/25 13:38 COMA, pt intubated bupropion HCl (From Allergy Angioedema Verified 07/03/25 13:38 Wellbutrin) Iodinated Contrast Media Allergy Unknown Verified 07/03/25 13:38 (Iodinated Contrast Media - IV Dye) Penicillins Allergy Hives Verified 07/03/25 13:38 shellfish derived Allergy Swelling Verified 07/03/25 13:38 promethazine (From Phenergan) AdvReac Intermediate restless Verified 07/03/25 13:38 legs Family History Father Alcohol abuse Drug abuse COPD (chronic obstructive pulmonary disease) Cirrhosis of liver CAD (coronary artery disease) Mother Breast cancer Brother Colon cancer Surgical History History of tooth extraction History of undescended testicle History of inguinal hernia repair History of tracheostomy (09/20/12) History of esophagogastroduodenoscopy (EGD) (12/09/15) History of lithotripsy (09/20/07) History of colonoscopy (11/17/21) History of bronchoscopy (06/20/13) History of cervical spinal surgery Social History household members: spouse housing: house Smoking Status: Former smoker quit date: 09/20/14 pack-years: 30 alcohol intake: never substance use type: marijuana Review of Systems (Anesthesia) ROS Narrative System reviewed and no additional complaints, except as documented.
[2025-07-09] MEDS: Lactated Ringers 1,000 ML 15 ML IV (09:29)
--- NOTE | 2025-07-09 09:38 | RAD_ITS ---
PROCEDURE: Intraoperative fluoroscopic imaging for caudal block. 07/09/2025 REASON FOR EXAM: CAUDAL BLOCK TECHNIQUE: Procedure Code: RADSPCV Modality: DX Procedure: Intraoperative fluoroscopic imaging. Fluoroscopy: 5 seconds. Radiation dose: 3.39 mGy. 1 image was submitted. COMPARISON: None FINDINGS: Intraoperative imaging provided for caudal block RAD/Spine 1 View Any Level IMPRESSION: Intraoperative imaging provided for caudal block. Reading Location: [facility]--1
[2025-07-09] MEDS: 0.9% Normal Saline (Pres. free 10 ML Vial (09:45)
[2025-07-09] MEDS: Lidocaine 1% (5 ml sdv) 5 ML Vial (09:45)
--- NOTE | 2025-07-09 09:50 | PCM.POST.ANE ---
Anesthesia: Postop Eval I Current Vital Signs Temperature: 98.5 F Pulse Rate: 99 Blood Pressure: 147/89 Respiratory Rate: 20 Pulse Ox: 99 Assessment Airway patent: Yes Spontaneous unlabored respirations: Yes nausea: No Vomiting: No Anesthesia Complication: No Fluid Hydration Crystalloid volume administer (ml): 100 Total IV fluid infused: 100 Progress Note Anesthesia document: Postop Eval 1 completed: Yes
--- NOTE | 2025-07-09 09:52 | OP.PCM_ITS ---
Operative Report (Standard) Operative Information Date of Procedure: 07/09/25 Pre-Operative Diagnosis: Lumbosacral radiculopathy, lumbosacral degenerative disc disease, lumbosacral spinal stenosis Post-Operative Diagnosis: Lumbosacral radiculopathy, lumbosacral degenerative disc disease, lumbosacral spinal stenosis Surgery/Procedure Performed: Diagnostic/therapeutic caudal epidural steroid injection under fluoroscopic guidance glacing machine tender: No Type of Anesthesia: Local MAC RN Documented Start/Stop Times: Operation Date: 07/09/25 10:20 Case Time Into Pre-Op 07/09/25 08:52 Anesthesia Start 07/09/25 09:38 Into Room 07/09/25 09:38 Procedure Start 07/09/25 09:44 Procedure End 07/09/25 09:46 Anesthesia End 07/09/25 09:51 Out of Room 07/09/25 09:51 Procedure Start Time: 09:52 Procedure Stop Time: 09:53 Select all DRAINS/GRAFTS/IMPLANTS that apply: None Estimated Blood Loss: 1 Specimen collected: No Description of surgery: ANESTHESIA: MAC. BLOOD LOSS: Minimal. COMPLICATIONS: None. DESCRIPTION OF PROCEDURE: History and physical of today was reviewed. Risks and benefits of the procedure were explained. The patient understood and agreed to proceed. Informed consent was obtained. IV inserted per routine protocol. The patient was taken to the operating room and placed in the prone position with a pillow positioned underneath the abdomen. The lower back and tailbone area was prepped and draped in a sterile fashion using iodine x3. Under fluoroscopy guidance on a lateral view, the caudal space was identified. The skin and subcutaneous tissue was anesthetized with approximately 3 mL of 1% lidocaine using a 25-gauge regular needle. Under direct visualization with fluoroscopy, using a 22-gauge 3-1/2-inch spinal needle, the needle was advanced via the skin through the sacral hiatus. The tip of the needle was passed through the sacrococcygeal ligament and advanced to approximately S4 area. After negative aspiration of blood or CSF, a total of 3 mL of contrast was injected to confirm correct placement of the needle as well as cephalad spread. The spread was followed to approximately L5 area. After confirmation on AP as well as lateral view and repeated negative aspiration, a total of 15 mL of preservative-free 0.125% Marcaine with 80 mg of Depo-Medrol was injected easily. The needle was then removed intact. The patient experienced no sign or symptoms of intrathecal or intravascular injection. The patient experienced no paresthesia. The procedure was completed without any apparent difficulty or any complications. The patient appeared to tolerate it well. ASSESSMENT AND PLAN: This is a 64-year-old male with lumbosacral radiculopathy, lumbosacral degenerative disc disease, lumbosacral spinal stenosis, status post diagnostic/therapeutic caudal epidural steroid injection under fluoroscopic guidance, patient will continue his current medications, patient will follow-up in approximately 2 weeks for reevaluation. Surgical Findings: 0 Complications Complications: No Admit VTE Documentation VTE Present on Admission: No VTE Mechan Device Prophylaxis: None VTE Pharm Prophylaxis ordered?: No
--- NOTE | 2025-07-09 12:08 | POSTOPAN2_ITS ---
Anesthesia Postop Eval I Sum Postop Eval Completion status Anesthesia document: Postop Eval 1 completed: Yes Anesthesia Postop Eval I Summary Anesthesia Postop Eval I Summary: Anesthesia Postop Eval I: Assessment Summary Airway patent Yes 07/09/25 09:50 [email or web address] Spontaneous unlabored Yes 07/09/25 09:50 PROCUREMENT [email or web address] respirations Mental status nausea No 07/09/25 09:50 PROCUREMENT MANAGER.[email or web address] Vomiting No 07/09/25 09:50 PROCUREMENT [email or web address] Anesthesia Postop Eval I: Fluid Summary Crystalloid volume administer 100 07/09/25 09:50 PROCUREMENT [email or web address] (ml) Colloids volume administered ( ml) Blood Product volume administered (ml) Total IV fluid infused 100 07/09/25 09:50 PROCUREMENT [email or web address] Anesthesia Postop Eval I: Summary Notes Anesthesia Complication No 07/09/25 09:50 PROCUREMENT MANAGER.[email or web address] Anesthesia Complication Comment: Post-operative progress note Anesthesia: Postop Eval II Evaluation Mental status: Awake Pain Level: 0 nausea: No Vomiting: No
--- NOTE | 2025-07-09 12:08 | PCM.POSTANE2 ---
Anesthesia Postop Eval I Sum Postop Eval Completion status Anesthesia document: Postop Eval 1 completed: Yes Anesthesia Postop Eval I Summary Anesthesia Postop Eval I Summary: Anesthesia Postop Eval I: Assessment Summary Airway patent Yes 07/09/25 09:50 HOG [email or web address] Spontaneous unlabored Yes 07/09/25 09:50 HOG [email or web address] respirations Mental status nausea No 07/09/25 09:50 HOG OPERATOR.[email or web address] Vomiting No 07/09/25 09:50 HOG [email or web address] Anesthesia Postop Eval I: Fluid Summary Crystalloid volume administer 100 07/09/25 09:50 HOG [email or web address].CSIR (ml) Colloids volume administered ( ml) Blood Product volume administered (ml) Total IV fluid infused 100 07/09/25 09:50 HOG [email or web address].CSIR Anesthesia Postop Eval I: Summary Notes Anesthesia Complication No 07/09/25 09:50 HOG [email or web address].CSIR Anesthesia Complication Comment: Post-operative progress note Anesthesia: Postop Eval II Evaluation Mental status: Awake Pain Level: 0 nausea: No Vomiting: No
== END 2025-07-09 10:32 | disposition home or self-care (01) ==
LOC: SDC 08:50 → AC 08:52
PROVIDERS: PCP Student in an Organized Health Care Education/Training Program; Referring Provider Anesthesiology Pain Medicine; Visit Provider Anesthesiology Pain Medicine
PROC: 3E0S3BZ Introduction of Anesthetic Agent into Epidural Space, Percutaneous Approach (ICD-10-PCS; CPT 62282; principal; 2025-07-09 10:15)
DX: M51.17 Intervertebral disc disorders with radiculopathy, lumbosacral region (principal); Z79.4 Long term (current) use of insulin; E11.9 Type 2 diabetes mellitus without complications; M48.07 Spinal stenosis, lumbosacral region; F32.A Depression, unspecified; I10 Essential (primary) hypertension; Z79.899 Other long term (current) drug therapy; Z79.84 Long term (current) use of oral hypoglycemic drugs; Z87.891 Personal history of nicotine dependence
CPT/HCPCS: 62323; 01992; 64483; 72020; 82962; J2405

== ENCOUNTER → 2025-07-25 | Outpatient (CLI) | payer MEDICARE, BC, SELFPAY ==
--- NOTE | 2025-07-25 15:38 | RAD_ITS ---
PROCEDURE: RAD/Thoracic Spine 3 Views
== END | disposition home or self-care (01) ==
LOC: MTRAD 15:37
PROVIDERS: PCP Student in an Organized Health Care Education/Training Program; Referring Provider Clinical Nurse Specialist Adult Health; Visit Provider Clinical Nurse Specialist Adult Health
DX: M54.6 Pain in thoracic spine (principal)
CPT/HCPCS: 72072

== ENCOUNTER → 2025-09-04 | Outpatient (CLI) | payer MEDICARE, BC, SELFPAY ==
--- NOTE | 2025-09-04 09:56 | MRI_ITS ---
PROCEDURE: SPINE LUMBAR (ROUTINE) 09/04/2025 REASON FOR EXAM: SPINAL STENOSIS, LUMBAR REGION WITH NEUROGENIC CLAUDICATION TECHNIQUE: Procedure Code: MRISPL Modality: MR Procedure: SPINE LUMBAR (ROUTINE) COMPARISON: None available. FINDINGS: For the purposes of this report, the most caudal rectangular vertebral body will be designated L5. The next most caudal trapezoidal shaped vertebral body will be designated S1. The intervening disc at the lumbosacral angle is designated L5-S1. The normal lumbar lordosis is maintained. Lumbar dextroscoliosis. The lumbar vertebral bodies are normal in height. The lumbar vertebral bodies are normal in alignment. There is no bone marrow replacing lesion in the lumbar spine. Multilevel disc desiccation and intervertebral disc space height loss. Schmorl's nodes at the L2-L3 apposing endplates. There is no evidence of signal abnormality in the imaged distal spinal cord. The conus medullaris terminates at the level of L1-L2. T12-L1: No significant spinal canal stenosis or neural foraminal narrowing. L1-L2: No significant spinal canal stenosis or neural foraminal narrowing. L2-L3: Disc bulge flattens the ventral thecal sac. Bilateral facet arthrosis and ligamentum flavum hypertrophy. Moderate left neural foraminal narrowing. Intact right neural foramen. Type 2 Modic endplate changes. L3-L4: Disc bulge, bilateral facet arthrosis, and ligamentum flavum hypertrophy contribute to mild spinal canal stenosis. Severe left and [id number] right neural foraminal narrowing. Type 1 Modic endplate changes. L4-L5: Disc bulge, bilateral facet arthrosis, and ligamentum flavum hypertrophy. Mild spinal canal stenosis. Moderate bilateral neural foraminal narrowing. Type 2 Modic endplate changes. L5-S1: Disc bulge, bilateral facet arthrosis, and ligamentum flavum hypertrophy. Mild spinal canal stenosis. Severe bilateral neural foraminal narrowing. Type 2 Modic endplate changes. Fatty atrophy of the posterior paraspinal muscles. MRI/Spine Lumbar (Routine) IMPRESSION: Multilevel lumbar spondylosis most marked at L5-S1 where there is severe bilate ral neural foraminal stenosis. Multiple levels of moderate neural foraminal stenosis. No high-grade spinal canal stenosis in lum bar spine. Reading Location: [id number]
== END | disposition home or self-care (01) ==
PROVIDERS: PCP Student in an Organized Health Care Education/Training Program; Referring Provider Anesthesiology Pain Medicine; Visit Provider Anesthesiology Pain Medicine
DX: M48.062 Spinal stenosis, lumbar region with neurogenic claudication (principal)
CPT/HCPCS: 72148